=== PATIENT | male | born 1950 | race Caucasian/White ===

== ENCOUNTER 2017-10-28 04:27 | Observation (INO) | payer OTHER ==
--- NOTE | 2017-10-28 04:53 | EDM.PDOC ---
ED HPI GENERAL MEDICAL PROBLEM - General Chief Complaint: Cardiovascular Problem Stated Complaint: Chest Pain Time Seen by Provider: 10/28/17 04:40 Source of Information: Reports: Patient, EMS History Limitations: Reports: No Limitations - History of Present Illness INITIAL COMMENTS - FREE TEXT/NARRATIVE: Patient brought in with complaints of chest pain that started early Monday morning. They continued throughout the day but he called EMS when he became diaphoretic. Pain is to the lower left anterior chest with no radiation to the neck, back, or arm. Pain worsens with inspiration, as well as palpation. He does have an extensive heart history with at least 2 resuscitation attempts. He does have an AICD implanted to the left subclavian area. This has not fired He also does have a history of asthma, COPD, migraine headaches. He is here with big black sunglasses on currently. Onset: Gradual Location: Reports: Chest Quality: Reports: Burning Severity: Mild Improves with: Reports: Medication Worsens with: Reports: Breathing, Other (contact) Left Chest Pain Score (Numeric/FACES): 2 - Related Data Allergies Allergy/AdvReac Type Severity Reaction Status Date / Time tetracycline Allergy Hives Verified 10/28/17 05:29 Home Meds: Home Meds Omeprazole Magnesium [Prilosec Otc] 20 mg PO DAILY 11/05/15 [History] predniSONE [Prednisone] 5 mg PO DAILY 11/05/15 [History] Past Medical History Cardiovascular History: Reports: Automatic Implantable Cardioverter Defibrillators, CAD, Heart Failure, [place], Pacemaker Respiratory History: Reports: COPD Gastrointestinal History: Reports: Hiatal Hernia Musculoskeletal History: Reports: RA Endocrine/Metabolic History: Reports: Diabetes, Type II - Past Surgical History Cardiovascular Surgical History: Reports: AICD, Carotid Stents, Pacer ED ROS GENERAL - Review of Systems Review Of Systems: See Below Constitutional: Reports: Diaphoresis HEENT: Reports: No Symptoms Respiratory: Reports: Shortness of Breath, Wheezing Cardiovascular: Reports: Chest Pain Endocrine: Reports: No Symptoms GI/Abdominal: Reports: No Symptoms : Reports: No Symptoms Musculoskeletal: Reports: No Symptoms Skin: Reports: No Symptoms Neurological: Reports: No Symptoms Psychiatric: Reports: No Symptoms Hematologic/Lymphatic: Reports: No Symptoms Immunologic: Reports: No Symptoms ED EXAM, GENERAL - Physical Exam Exam: See Below Exam Limited By: No Limitations General Appearance: Alert, WD/WN, Mild Distress Eye Exam: Bilateral Eye: EOMI, Normal Inspection, PERRL Ears: Normal TMs Head: Atraumatic, Normocephalic Neck: Normal Inspection, Supple, Non-Tender, Full Range of Motion Respiratory/Chest: No Respiratory Distress, Lungs Clear, Normal Breath Sounds, No Accessory Muscle Use, Chest Non-Tender Cardiovascular: Normal Peripheral Pulses, Regular Rate, Rhythm, No Edema, No Gallop, No JVD, No Murmur, No Rub Peripheral Pulses: 2+: Radial (L), Radial (R), Posterior Tibial (L), Posterior Tibial (R), Dorsalis Pedis (L), Dorsalis Pedis (R) GI/Abdominal: Normal Bowel Sounds, Soft, Non-Tender, No Organomegaly, No Distention, No Abnormal Bruit, No Mass Back Exam: Normal Inspection, Full Range of Motion, NT Extremities: Normal Inspection, Normal Range of Motion, Non-Tender, Normal Capillary Refill, No Pedal Edema Neurological: Alert, Oriented, CN II-XII Intact, Normal Cognition, Normal Gait, Normal Reflexes, No Motor/Sensory Deficits Psychiatric: Normal Affect, Normal Mood Skin Exam: Warm, Dry, Intact, Normal Color, No Rash Lymphatic: No Adenopathy Departure - Departure Time of Disposition: 06:08 Disposition: Refer to Observation Condition: Fair Clinical Impression: Chest pain, Angina pectoris, COPD exacerbation - Problem List & Annotations (1) Angina pectoris SNOMED Code(s): 927198607 Code(s): I20.9 - ANGINA PECTORIS, UNSPECIFIED Status: Acute Priority: Medium Current Visit: Yes Annotation/Comment:: Trend troponin, transfer out if elevation occurs ASA and nitro given in EMS Monitor for troponin elevation, BNP elevatation (2) COPD exacerbation SNOMED Code(s): 574795188606421 Code(s): J44.1 - CHRONIC OBSTRUCTIVE PULMONARY DISEASE W (ACUTE) EXACERBATION Status: Acute Priority: Medium Current Visit: Yes Annotation/Comment:: Neb treatments PRN Solumedrol q12 hours supplemental oxygen - Problem List Review Problem List Initiated/Reviewed/Updated: Yes - Assessment/Plan Plan: Admit observation Monitor patient for any troponin elevation, increased difficulty or work of breathing Neb treatments and iv solumedrol for copd exacerbation
[2017-10-28] MEDS ORDERED: GI Cocktail Oral Solution 30 ML PO ONE (05:01)
[2017-10-28 05:14] LABS: CHLORIDE,CL 103 mmol/L (98-107); SODIUM,NA 140 mmol/L (136-145)
[2017-10-28] MEDS ORDERED: Albuterol/Ipratropium 3.0-0.5 MG/3 ML Neb Soln NEB ONE (05:26)
[2017-10-28] MEDS ORDERED: Potassium Chloride 20 MEQ Tab.ER PO ONE (05:28)
[2017-10-28] MEDS: Enoxaparin 40 MG/0.4 ML Syringe SUBCUT SCH (11:59)
[2017-10-28] MEDS ORDERED: Ibuprofen 200 MG Tab PO PRN (12:59)
[2017-10-28] MEDS: Lisinopril 2.5 MG Tab PO SCH (14:13)
[2017-10-28] MEDS: predniSONE 5 MG Tab PO SCH (14:13)
[2017-10-28] MEDS: amLODIPine 5 MG Tab PO SCH (14:13)
[2017-10-28] MEDS: Cholecalciferol (Vitamin D3) 1,000 Unit Tab PO SCH (14:13)
[2017-10-28] MEDS: Metoprolol Succinate 50 MG Tab.ER PO SCH (14:14)
[2017-10-28] MEDS: glipiZIDE 5 MG Tab PO SCH (14:14)
[2017-10-28] MEDS: Aspirin 81 MG Tab.EC PO SCH (14:15)
[2017-10-28] MEDS: Fluticasone Propionate Nasal Spray 16 GM Bottle NAS SCH ×2 (14:17→19:37)
[2017-10-28] MEDS: CHLORTHALIDONE 25 MG PO SCH (16:22)
[2017-10-28] MEDS: Albuterol/Ipratropium 3.0-0.5 MG/3 ML Neb Soln NEB SCH (19:36)
[2017-10-28] MEDS ORDERED: atorvaSTATin 40 MG Tab PO SCH (20:00)
[2017-10-29 05:47] VITALS: BP 128/73
[2017-10-29] MEDS: glipiZIDE 5 MG Tab PO SCH (06:30)
[2017-10-29] MEDS ORDERED: Omeprazole 20 MG Cap.CR PO SCH (07:00)
[2017-10-29] MEDS: Albuterol/Ipratropium 3.0-0.5 MG/3 ML Neb Soln NEB SCH (07:09)
[2017-10-29] MEDS: Metoprolol Succinate 50 MG Tab.ER PO SCH (07:48)
[2017-10-29] MEDS: amLODIPine 5 MG Tab PO SCH (07:49)
[2017-10-29] MEDS: Lisinopril 2.5 MG Tab PO SCH (07:49)
[2017-10-29] MEDS: Aspirin 81 MG Tab.EC PO SCH (07:49)
[2017-10-29] MEDS: predniSONE 5 MG Tab PO SCH (07:49)
[2017-10-29] MEDS: Enoxaparin 40 MG/0.4 ML Syringe SUBCUT SCH (07:50)
[2017-10-29] MEDS: Cholecalciferol (Vitamin D3) 1,000 Unit Tab PO SCH (07:50)
[2017-10-29] MEDS: CHLORTHALIDONE 25 MG PO SCH (07:51)
[2017-10-29] MEDS: Fluticasone Propionate Nasal Spray 16 GM Bottle NAS SCH (07:51)
== END 2017-10-29 08:50 | disposition home or self-care (01) ==
LOC: VM.ED 04:27 → VM.MS 05:42 → UNDOADMOB 05:54 → VM.MS 05:54
PROVIDERS: ADMIT Nurse Practitioner Family; ATTEND Nurse Practitioner Family
DX: I20.9 Angina pectoris, unspecified (principal); I11.0 Hypertensive heart disease with heart failure; I50.9 Heart failure, unspecified; E11.9 Type 2 diabetes mellitus without complications; J44.9 Chronic obstructive pulmonary disease, unspecified; G43.909 Migraine, unspecified, not intractable, without status migrainosus; Z95.810 Presence of automatic (implantable) cardiac defibrillator; Z88.1 Allergy status to other antibiotic agents; Z79.82 Long term (current) use of aspirin; Z79.51 Long term (current) use of inhaled steroids; Z79.84 Long term (current) use of oral hypoglycemic drugs
CPT/HCPCS: 36415; 71045; 80053; 82550; 82962; 83735; 83880; 84100; 84443; 84484; 85025; 85027; 85379; 85610; 93005; 94640; 94760; 96372; 99285; A9270-GY; G0378; J1650

== ENCOUNTER 2018-05-21 06:49 | Emergency (ER) | payer OTHER ==
[2018-05-21] MEDS ORDERED: cefTRIAXone 1 GM Vial IVPUSH ONE (07:16)
[2018-05-21 07:52] LABS: CHLORIDE,CL 99 mmol/L (98-107); SODIUM,NA 136 mmol/L (136-145)
--- NOTE | 2018-05-21 07:59 | EDM.PDOC ---
ED HPI GENERAL MEDICAL PROBLEM - General Chief Complaint: Respiratory Problem Stated Complaint: dyspnea, AICD fired Time Seen by Provider: 05/21/18 06:52 Source of Information: Reports: Patient, EMS History Limitations: Reports: No Limitations - History of Present Illness INITIAL COMMENTS - FREE TEXT/NARRATIVE: Patient was taking his medications this AM when his AICD fired. He also states he is SOB. States he has had a cough and feeling ill for the last 2 weeks. History of COPD, diabetes II, stent placement x 3 stents, last echo in 2013 showed EF of 40%. Still smokes 1 PPD. Denies chills, headache, abdominal pain , chest pain, neurological changes, no change in muscle strength or ROM. Onset: Sudden Duration: Resolved Prior to Arrival Associated Symptoms: Reports: Shortness of Breath Left Chest Pain Score (Numeric/FACES): 2 - Related Data Allergies Allergy/AdvReac Type Severity Reaction Status Date / Time tetracycline Allergy Hives Verified 05/21/18 06:59 Home Meds: Home Meds Omeprazole Magnesium [Prilosec Otc] 20 mg PO DAILY 11/05/15 [History] predniSONE [Prednisone] 10 mg PO DAILY 11/05/15 [History] Albuterol/Ipratropium [DuoNeb 3.0-0.5 MG/3 ML] 1 inh NEB TID 10/28/17 [History] Chlorthalidone 12.5 mg PO DAILY 10/28/17 [History] Glucose Tab 8 gram PO ASDIRECTED PRN 10/28/17 [History] Ibuprofen [Motrin Ib] 200 mg PO BID PRN 10/28/17 [History] Lisinopril [Zestril] 40 mg PO DAILY 10/28/17 [History] Metoprolol Succinate [Toprol XL 100mg] 100 mg PO DAILY 10/28/17 [History] glipiZIDE [Glipizide ER] 0.25 tab PO DAILY 10/28/17 [History] sulfaSALAzine 2 tab PO DAILY 05/21/18 [History] Past Medical History HEENT History: Reports: Cataract, Sinusitis, Other (See Below) Other HEENT History: left eye problems, photo sensitive Cardiovascular History: Reports: Automatic Implantable Cardioverter Defibrillators, CAD, Heart Failure, [place], Pacemaker Respiratory History: Reports: COPD Gastrointestinal History: Reports: Hiatal Hernia, Other (See Below) Other Gastrointestinal History: diverticulitis Genitourinary History: Reports: Renal Calculus, Other (See Below) Other Genitourinary History: renal failure s/p pacer/aicd placement Musculoskeletal History: Reports: RA Neurological History: Reports: Migraines Endocrine/Metabolic History: Reports: Diabetes, Type II - Infectious Disease History Infectious Disease History: Reports: Chicken Pox, Measles - Past Surgical History HEENT Surgical History: Reports: Cataract Surgery Cardiovascular Surgical History: Reports: AICD, Carotid Stents, Pacer GI Surgical History: Reports: Appendectomy Male Surgical History: Reports: Kidney Stone Extraction Neurological Surgical History: Reports: Other (See Below) Other Neurological Surgeries/Procedures: back surgery x 2 Social & Family History - Family History Cardiac: Reports: Heart Failure Neurological: Reports: Alzheimers Disease Oncologic: Reports: Bone - Caffeine Use Caffeine Use: Reports: Coffee Caffeine Use Comment: 1 pot coffee/day ED ROS GENERAL - Review of Systems Review Of Systems: See Below Constitutional: Reports: No Symptoms HEENT: Reports: Sinus Problem, Throat Pain Respiratory: Reports: Shortness of Breath Cardiovascular: Reports: Other (AICD fired x 1) Endocrine: Reports: No Symptoms GI/Abdominal: Reports: No Symptoms : Reports: No Symptoms Musculoskeletal: Reports: No Symptoms Skin: Reports: No Symptoms Neurological: Reports: No Symptoms Psychiatric: Reports: No Symptoms Hematologic/Lymphatic: Reports: No Symptoms Immunologic: Reports: No Symptoms ED EXAM, GENERAL - Physical Exam Exam: See Below Exam Limited By: No Limitations General Appearance: Alert, WD/WN, No Apparent Distress Eye Exam: Bilateral Eye: EOMI, PERRL Ears: Normal TMs Nose: Normal Inspection, Normal Mucosa, No Blood Throat/Mouth: Normal Inspection, Normal Lips, Normal Teeth, Normal Gums, Normal Oropharynx, Normal Voice, No Airway Compromise Head: Atraumatic, Normocephalic Neck: Normal Inspection, Supple, Non-Tender, Full Range of Motion Respiratory/Chest: Rales, Wheezing Cardiovascular: Normal Peripheral Pulses, Regular Rate, Rhythm, No Edema Peripheral Pulses: 2+: Posterior Tibial (L), Posterior Tibial (R), Dorsalis Pedis (L), Dorsalis Pedis (R) GI/Abdominal: Normal Bowel Sounds, Soft, Non-Tender, No Organomegaly, No Distention, No Abnormal Bruit, No Mass Extremities: Normal Inspection, Normal Range of Motion, Non-Tender, Normal Capillary Refill, No Pedal Edema Neurological: Alert, Oriented, CN II-XII Intact, Normal Cognition, Normal Gait, Normal Reflexes, No Motor/Sensory Deficits Psychiatric: Normal Affect, Normal Mood Skin Exam: Warm, Dry, Intact, Normal Color, No Rash Lymphatic: No Adenopathy Course - Vital Signs Last Recorded V/S: Last Vital Signs Temp 38.2 C H 05/21/18 08:12 Pulse 99 05/21/18 09:00 Resp 22 H 05/21/18 09:00 BP 132/71 05/21/18 09:00 Pulse Ox 96 05/21/18 09:00 - Orders/Labs/Meds Orders: Active Orders 24 hr Category Date Time Status EKG Documentation Completion [] STAT Care 05/21/18 06:59 Active Oxygen Therapy Adult [Oxygen Therapy, ED] [] Care 05/21/18 07:15 Active ASDIRECTED Chest 1V Frontal [CR] Stat Exams 05/21/18 07:01 Taken CULTURE BLOOD [BC] Stat Lab 05/21/18 07:08 Received CULTURE BLOOD [BC] Stat Lab 05/21/18 07:13 Results Blood Culture x2 Reflex Set [OM.PC] Stat Oth 05/21/18 07:08 Ordered Labs: Laboratory Tests 05/21/18 05/21/18 05/21/18 Range/Units 07:08 07:08 07:08 WBC 15.0 H (4.0-10.0) x10^3/uL RBC 6.06 H (4.5-6.0) x10^6/uL Hgb 16.8 (14.0-18.0) g/dL Hct 50.0 (40.0-52.0) % MCV 82.5 D (78.0-93.0) fL MCH 27.7 (26.0-32.0) pg MCHC 33.6 (32.0-36.0) g/dL RDW Coeff of Maximino 14.6 (10.0-15.0) % Plt Count 197 (130-400) x10^3/uL Add Manual Diff Yes Neutrophils % (Manual) 80 (50-80) % Band Neutrophils % 2 (0-6) % Lymphocytes % (Manual) 10 L (25-50) % Reactive Lymphs % 1 H (0) % Monocytes % (Manual) 7 (2-11) % Hypersegmented Neuts Rare H Smudge Cells Few H Platelet Estimate Adequate Sodium 136 (136-145) mmol/L Potassium 4.0 (3.5-5.1) mmol/L Chloride 99 (98-107) mmol/L Carbon Dioxide 28 (21-32) mmol/L Anion Gap 13.0 (10-20) mmol/L BUN 21 H (7-18) mg/dL Creatinine 1.1 (0.70-1.30) mg/dL Est Cr Clr Drug Dosing 57.46 mL/min Estimated GFR (MDRD) > 60 Glucose 116 H (74-106) mg/dL Lactic Acid 1.5 (0.4-2.0) mmol/L Calcium 9.7 (8.5-10.1) mg/dL Corrected Calcium 10.42 H (8.5-10.1) mg/dL Magnesium 1.6 L (1.8-2.4) mg/dL Total Bilirubin 0.5 (0.2-1.0) mg/dL AST 19 (15-37) U/L ALT 28 (16-63) U/L Alkaline Phosphatase 100 (46-116) U/L Creatine Kinase 90 (39-308) U/L Troponin I 0.040 (<=0.056) ng/mL NT-Pro-B Natriuret Pep 1006 H (<=125) pg/mL Total Protein 6.9 (6.4-8.2) g/dL Albumin 3.1 L (3.4-5.0) g/dL Globulin 3.8 Albumin/Globulin Ratio 0.82 Meds: Medications Discontinued Medications Generic Name Dose Route Start Last Admin Trade Name Freq PRN Reason Stop Dose Admin Ceftriaxone Sodium 1 gm 05/21/18 07:16 05/21/18 07:25 Rocephin IVPUSH 05/21/18 07:17 1 gm STAT ONE Administration Departure - Departure Time of Disposition: 09:05 Disposition: DC/Tfer to Acute Hospital 02 Condition: Fair Clinical Impression: AICD discharge - Discharge Information *PRESCRIPTION DRUG MONITORING PROGRAM REVIEWED*: Not Applicable *COPY OF PRESCRIPTION DRUG MONITORING REPORT IN PATIENT BASSEM: Not Applicable Referrals: PCP,Not In Area [Primary Care Provider] - Forms: ED Department Discharge, Interfacility Transfer EMTALA ED Communication - ED Communication Date/Time Date: 05/21/18 Time Called: 08:00 - Discussed Case With (1) Discussed Case With (1): Other (Discussed case with gullet slitter at [facility] in [place], Dr. Templeton. She felt additional cardiology work up was not needed with exception of possibly a stress test. Will call [facility]) - Discussed Case With (2) Discussed Case With (2): Admitting Provider (Dr. Randle called and given report. He has accepted care of patient. [facility] in [place]) - Problem List & Annotations (1) AICD discharge SNOMED Code(s): 221435924, 152498783 Code(s): Z45.02 - ENCNTR FOR ADJUST AND MGMT OF AUTOMATIC IMPLNTBL CARD DEFIB Status: Acute Priority: Medium - Problem List Review Problem List Initiated/Reviewed/Updated: Yes - My Orders Last 24 Hours: My Active Orders 05/21/18 06:59 EKG Documentation Completion [RC] STAT 05/21/18 07:01 Chest 1V Frontal [CR] Stat 05/21/18 07:08 CULTURE BLOOD [BC] Stat Blood Culture x2 Reflex Set [OM.PC] Stat 05/21/18 07:13 CULTURE BLOOD [BC] Stat 05/21/18 07:15 Oxygen Therapy Adult [Oxygen Therapy, ED] [RC] ASDIRECTED - Assessment/Plan Last 24 Hours: My Active Orders 05/21/18 06:59 EKG Documentation Completion [RC] STAT 05/21/18 07:01 Chest 1V Frontal [CR] Stat 05/21/18 07:08 CULTURE BLOOD [BC] Stat Blood Culture x2 Reflex Set [OM.PC] Stat 05/21/18 07:13 CULTURE BLOOD [BC] Stat 05/21/18 07:15 Oxygen Therapy Adult [Oxygen Therapy, ED] [RC] ASDIRECTED
[2018-05-21 09:01] VITALS: BP 132/71
== END 2018-05-21 09:05 | disposition short-term general hospital (02) ==
LOC: VM.ED 06:49
DX: Z45.02 Encounter for adjustment and management of automatic implantable cardiac defibrillator (principal); J44.9 Chronic obstructive pulmonary disease, unspecified; E11.9 Type 2 diabetes mellitus without complications; I50.9 Heart failure, unspecified; I25.2 Old myocardial infarction; F17.210 Nicotine dependence, cigarettes, uncomplicated; Z88.1 Allergy status to other antibiotic agents; Z79.899 Other long term (current) drug therapy; Z79.84 Long term (current) use of oral hypoglycemic drugs; Z95.810 Presence of automatic (implantable) cardiac defibrillator; Z95.5 Presence of coronary angioplasty implant and graft
CPT/HCPCS: 36415; 71045; 80053; 82550; 83605; 83735; 83880; 84484; 85025; 87040; 93005; 96374; 99284-GF; 99285; J0696

== ENCOUNTER 2019-10-03 16:04 | Emergency (ER) | payer OTHER ==
[2019-10-03 16:14] VITALS: BP 148/76; PULSE 76
[2019-10-03] MEDS ORDERED: Sodium Chloride 0.9% 10 ML Syringe FLUSH PRN (16:18)
[2019-10-03] MEDS ORDERED: GI Cocktail Oral Solution 30 ML PO ONE (16:19)
[2019-10-03] MEDS ORDERED: Albuterol/Ipratropium 3.0-0.5 MG/3 ML Neb Soln NEB ONE (16:19)
--- NOTE | 2019-10-03 16:44 | EDM.PDOC ---
ED HPI GENERAL MEDICAL PROBLEM - General Chief Complaint: Respiratory Problem Stated Complaint: SOB Time Seen by Provider: 10/03/19 16:20 Source of Information: Reports: Patient History Limitations: Reports: No Limitations - History of Present Illness INITIAL COMMENTS - FREE TEXT/NARRATIVE: Patient comes emergency department today from the [facility] for further evaluation and care of shortness of breath. This patient about 6 weeks ago ended up getting a cardiac stent at [facility] in [place]. Since that time he has had continued heartburn and burning in the middle of his chest which she has had for 6 years has not gotten much worse. But he has noticed that he has had increasing shortness of breath and difficulty breathing for the past 6 weeks. It is getting to the point where it is interfering with his physical activity. He is coughing more. He denies any fever or chills. No weakness dizziness lightheadedness. No palpitations. No heaviness or other pains in his chest other than his chronic burning sensation from his heartburn for which he takes his Prilosec for. He has not had any diaphoresis nausea or vomiting. No abdominal pain. No pain into his back. He has been using his inhalers at home but he continues to be short of breath. He feels audibly. He does not weigh himself on a regular basis. He has been taking his Plavix as prescribed. He has never had a scope on his stomach to see if he has an ulcer but he has been on Protonix for years. Epigastric Pain Score (Numeric/FACES): 1 - Related Data Allergies Allergy/AdvReac Type Severity Reaction Status Date / Time nitrofurantoin Allergy Other Verified 10/03/19 16:39 tetracycline Allergy Hives Verified 10/03/19 16:16 Home Meds: Home Meds Albuterol/Ipratropium [DuoNeb 3.0-0.5 MG/3 ML] 1 inh NEB Q6H PRN 10/28/17 [ History] Ibuprofen [Motrin Ib] 200 mg PO BID PRN 10/28/17 [History] Metoprolol Succinate [Toprol XL 100mg] 25 mg PO DAILY 10/28/17 [History] glipiZIDE [Glipizide ER] 5 mg PO DAILY 10/28/17 [History] lisinopriL [Zestril] 40 mg PO DAILY 10/28/17 [History] Aspirin 81 mg PO DAILY 09/04/19 [History] Chlorthalidone 25 mg PO DAILY 09/04/19 [History] Cholecalciferol (Vitamin D3) [Vitamin D3] 1,000 mg PO DAILY 09/04/19 [History] Clopidogrel Bisulfate [Plavix] 75 mg PO DAILY 09/04/19 [History] Tiotropium Br/Olodaterol HCl [Stiolto Respimat Inhal [place]] 2 inh PO DAILY 09/03 [History] amLODIPine Besylate [Norvasc] 5 mg PO DAILY 09/04/19 [History] Albuterol Sulfate 2.5 mg IH Q4HR PRN #30 vial.neb 10/03/19 [Rx] Amoxicillin 1,000 mg PO BID #28 capsule 10/03/19 [Rx] Azithromycin 250 mg PO DAILY #5 tablet 10/03/19 [Rx] Tamsulosin [Tamsulosin 24 Hr] 0.4 mg PO DAILY 10/03/19 [History] atorvaSTATin Calcium [Lipitor] 40 mg PO DAILY 10/03/19 [History] predniSONE 20 mg PO DAILY #5 tab 10/03/19 [Rx] predniSONE [Prednisone] 10 mg PO DAILY 10/03/19 [History] sulfaSALAzine [Azulfidine] 500 mg PO BID 10/03/19 [History] Past Medical History HEENT History: Reports: Cataract, Sinusitis, Other (See Below) Other HEENT History: left eye problems, photo sensitive Cardiovascular History: Reports: Automatic Implantable Cardioverter Defibrillators, CAD, Heart Failure, DE, Pacemaker Respiratory History: Reports: COPD Gastrointestinal History: Reports: Hiatal Hernia, Other (See Below) Other Gastrointestinal History: diverticulitis Genitourinary History: Reports: Renal Calculus, Other (See Below) Other Genitourinary History: renal failure s/p pacer/aicd placement Musculoskeletal History: Reports: RA Neurological History: Reports: Migraines Psychiatric History: Reports: Addiction Endocrine/Metabolic History: Reports: Diabetes, Type II - Infectious Disease History Infectious Disease History: Reports: Chicken Pox, Measles - Past Surgical History HEENT Surgical History: Reports: Cataract Surgery Cardiovascular Surgical History: Reports: AICD, Carotid Stents, Pacer GI Surgical History: Reports: Appendectomy Male Surgical History: Reports: Kidney Stone Extraction Neurological Surgical History: Reports: Other (See Below) Other Neurological Surgeries/Procedures: back surgery x 2 Social & Family History - Family History Cardiac: Reports: Heart Failure Neurological: Reports: Alzheimers Disease Oncologic: Reports: Bone - Tobacco Use Smoking Status *Q: Current Every Day Smoker Years of Tobacco use: 50 Packs/Tins Daily: 1 - Caffeine Use Caffeine Use: Reports: Coffee Caffeine Use Comment: 1 pot coffee/day ED ROS GENERAL - Review of Systems Review Of Systems: Comprehensive ROS is negative, except as noted in HPI. ED EXAM, GENERAL - Physical Exam Exam: See Below Free Text/Narrative:: To speak in about 6-8 word sentences and does not appear in overt respiratory distress. Exam Limited By: No Limitations General Appearance: Alert, WD/WN, No Apparent Distress Nose: Normal Inspection Throat/Mouth: Normal Inspection Head: Atraumatic, Normocephalic Neck: Normal Inspection, Supple Respiratory/Chest: No Respiratory Distress, No Accessory Muscle Use, Decreased Breath Sounds (thoughout), Wheezing (thoughout). No: Chest Non-Tender, Crackles , Rales, Rhonchi Cardiovascular: Normal Peripheral Pulses, Regular Rate, Rhythm Peripheral Pulses: 2+: Radial (L), Radial (R), Posterior Tibial (L), Posterior Tibial (R), Dorsalis Pedis (L), Dorsalis Pedis (R) GI/Abdominal: Normal Bowel Sounds, Soft, Non-Tender (Male) Exam: Deferred Rectal (Males) Exam: Deferred Back Exam: Normal Inspection Extremities: Normal Inspection, Normal Range of Motion, No Pedal Edema, Normal Capillary Refill Neurological: Alert, Oriented, Normal Cognition, No Motor/Sensory Deficits Psychiatric: Normal Affect, Normal Mood Skin Exam: Warm, Dry, Intact, Normal Color EKG INTERPRETATION EKG Date: 10/03/19 Time: 16:46 Rhythm: Other (A-V paced) Rate (Beats/Min): 70 QRS: Wide ST-T: Normal QT: Normal Comparison: No Change Course - Vital Signs Last Recorded V/S: Last Vital Signs Temp 36.9 C 10/03/19 16:04 Pulse 76 10/03/19 16:04 Resp 20 10/03/19 16:04 BP 148/76 H 10/03/19 16:04 Pulse Ox 93 L 10/03/19 16:04 - Orders/Labs/Meds Orders: Active Orders 24 hr Category Date Time Status EKG Documentation Completion [RC] STAT Care 10/03/19 16:19 Active RT Aerosol Therapy [RC] ASDIRECTED Care 10/03/19 16:19 Active RT Aerosol Therapy [RC] ASDIRECTED Care 10/03/19 17:53 Active Peripheral IV Insertion Adult [OM.PC] Stat Oth 10/03/19 16:18 Ordered Labs: Laboratory Tests 10/03/19 10/03/19 10/03/19 Range/Units 16:27 16:27 17:35 WBC 14.2 H (4.0-10.0) x10^3/uL RBC 6.26 H (4.5-6.0) x10^6/uL Hgb 17.4 (14.0-18.0) g/dL Hct 51.6 (40.0-52.0) % MCV 82.4 (78.0-93.0) fL MCH 27.8 (26.0-32.0) pg MCHC 33.7 (32.0-36.0) g/dL RDW Coeff of Maximino 14.7 (10.0-15.0) % Plt Count 236 (130-400) x10^3/uL Neut % (Auto) 81.4 H (50.0-80.0) % Lymph % (Auto) 13.1 L (25.0-50.0) % [place] % (Auto) 4.6 (2.0-11.0) % Eos % (Auto) 0.7 (0.0-4.0) % Baso % (Auto) 0.2 (0.2-1.2) % Sodium 141 (136-145) mmol/L Potassium 4.2 (3.5-5.1) mmol/L Chloride 104 (98-107) mmol/L Carbon Dioxide 25 (21-32) mmol/L Anion Gap 16.2 (10-20) mmol/L BUN 20 H (7-18) mg/dL Creatinine 0.9 (0.70-1.30) mg/dL Est Cr Clr Drug Dosing TNP Estimated GFR (MDRD) > 60 Glucose 113 H (74-106) mg/dL Calcium 10.4 H (8.5-10.1) mg/dL Corrected Calcium 10.72 H (8.5-10.1) mg/dL Total Bilirubin 0.3 (0.2-1.0) mg/dL AST 14 L (15-37) U/L ALT 23 (16-63) U/L Alkaline Phosphatase 109 (46-116) U/L Troponin I < 0.017 (<=0.056) ng/mL C-Reactive Protein 2.3 H (<=0.9) mg/dL NT-Pro-B Natriuret Pep 457 H (<=125) pg/mL Total Protein 6.9 (6.4-8.2) g/dL Albumin 3.6 (3.4-5.0) g/dL Globulin 3.3 Albumin/Globulin Ratio 1.09 SARS-CoV-2 RNA (RT-PCR) Negative (NEGATIVE) Meds: Medications Discontinued Medications Generic Name Dose Route Start Last Admin Trade Name Freq PRN Reason Stop Dose Admin Al Hydroxide/Mg Hydroxide 30 ml 10/03/19 16:19 10/03/19 16:32 Gi Cocktail PO 10/03/19 16:20 30 ml ONETIME ONE Administration Albuterol 1 packet 10/03/19 18:35 10/03/19 18:47 Take Home: Albuterol 0.083%, 4 Neb Pack [facility] 10/03/19 18:36 1 packet ONETIME ONE Administration Albuterol/Ipratropium 3 ml 10/03/19 16:19 10/03/19 16:32 Duoneb 3.0-0.5 Mg/3 Ml NEB 10/03/19 16:20 3 ml ONETIME ONE Administration Amoxicillin 1,000 mg 10/03/19 17:47 10/03/19 18:29 Amoxil PO 10/03/19 17:48 1,000 mg ONETIME ONE Administration Amoxicillin 500 mg 10/03/19 17:47 10/03/19 18:31 Amoxil 250 Mg/5 Ml Susp PO 10/03/19 17:48 Not Given ONETIME ONE Budesonide 1 mg 10/03/19 17:52 10/03/19 18:29 Pulmicort NEB 10/03/19 17:53 1 mg ONETIME ONE Administration Prednisone 40 mg 10/03/19 17:54 10/03/19 18:29 Prednisone PO 10/03/19 17:55 40 mg NOW STA Administration Sodium Chloride 10 ml 10/03/19 16:18 Saline Flush FLUSH ASDIRECTED PRN Keep Vein Open - Radiology Interpretation Free Text/Narrative:: CXR per radiology shows mild infiltrates in the lingula. - Re-Assessments/Exams Free Text/Narrative Re-Assessment/Exam: 10/03/19 The patient was given a GI Cocktail for his gerd and resolved the midsternal burning. EKG unchanged from previous. Duo-neb with resolution of the wheezing and the subjective SOB. CXR on my extemporaneous review with concerns for pneumonia. Radiology read to follow. Amox 1 gram po and Azith 500mg PO. Allergic to Tetracycline. Labs with mild elevation of WBC and CRP. Trop normal/negative. Rapid Covid Negative. Pro BNP minimally elevated. Budesonide neb 0.5mg with complete and continued resolution of the symptoms. We will discharge patient home on amoxicillin 1 g p.o. twice daily and azithromycin 250 mg daily for the next 5 days amoxicillin for a total of 10 days. Also just a small dose of prednisone because he is worried about the spike in his blood sugars with the prednisone and he really does not have a severe exacerbation by any means 20 mg a day for the next 5 days. We will send him home with some albuterol as well as he does not feel that the stuff that he has at home is working well. Follow-up in a week for recheck with primary care. He is comfortable with this plan his questions are answered. Departure - Departure Time of Disposition: 18:27 Disposition: Home, Self-Care 01 Clinical Impression: COPD with exacerbation, COVID-19 ruled out Pneumonia Qualifiers: Pneumonia type: due to unspecified organism Laterality: unspecified laterality Lung location: unspecified part of lung Qualified Code(s): J18.9 - Pneumonia, unspecified organism - Discharge Information Prescriptions: Albuterol Sulfate 2.5 mg IH Q4HR PRN #30 vial.neb PRN Reason: Shortness Of Breath Amoxicillin 1,000 mg PO BID #28 capsule Azithromycin 250 mg PO DAILY #5 tablet predniSONE 20 mg PO DAILY #5 tab Referrals: Jose Wesley NP [Primary Care Provider] - Forms: ED Department Discharge Additional Instructions: Amoxicillin, 1 gram by mouth twice daily for the next 10 days. RX to [facility]. Zithromax, 1 tablet daily for the next 5 days. RX to [facility]. Prednisone 20mg a day for the next 5 days. Rx to [facility]. Watch your blood sugars. Push fluids over the next few days. Albuterol, 2.5mg nebulizer every 4 hrs as needed for Shortness of Breath or cough. Rx to [facility]. Return to the ED if new or worsening symptoms. Follow up with Jose Wesley in 7 days for recheck. Sooner if worse or not improving. Sepsis Event Note - Evaluation Sepsis Screening Result: No Definite Risk - Focused Exam Vital Signs: Vital Signs Temp Pulse Resp BP Pulse Ox 10/03/19 16:04 36.9 C 76 20 148/76 H 93 L Date Exam was Performed: 10/03/19 Time Exam was Performed: 22:04 - My Orders Last 24 Hours: My Active Orders 10/03/19 16:18 Peripheral IV Insertion Adult [OM.PC] Stat 10/03/19 16:19 EKG Documentation Completion [RC] STAT RT Aerosol Therapy [RC] ASDIRECTED 10/03/19 17:53 RT Aerosol Therapy [RC] ASDIRECTED - Assessment/Plan Last 24 Hours: My Active Orders 10/03/19 16:18 Peripheral IV Insertion Adult [OM.PC] Stat 10/03/19 16:19 EKG Documentation Completion [RC] STAT RT Aerosol Therapy [RC] ASDIRECTED 10/03/19 17:53 RT Aerosol Therapy [RC] ASDIRECTED Assessment:: COPD exacerbation with mild exacerbation. Pneumonia. Plan: Amoxicillin, 1 gram by mouth twice daily for the next 10 days. RX to [facility]. Zithromax, 1 tablet daily for the next 5 days. RX to [facility]. Prednisone 20mg a day for the next 5 days. Rx to [facility]. Watch your blood sugars. Push fluids over the next few days. Albuterol, 2.5mg nebulizer every 4 hrs as needed for Shortness of Breath or cough. Rx to [facility]. Return to the ED if new or worsening symptoms. Follow up with Jose Wesley in 7 days for recheck. Sooner if worse or not improving.
[2019-10-03 17:00] LABS: ANION GAP 16.2 mmol/L (10-20); CHLORIDE,CL 104 mmol/L (98-107); SODIUM,NA 141 mmol/L (136-145)
--- NOTE | 2019-10-03 17:23 | CR ---
[id number] RAD/RAD Chest PA And Lateral EXAM: FRONTAL AND LATERAL CHEST INDICATION: Chest pain and shortness of breath. COMPARISON: May 21, 2018. DISCUSSION: Cardiomegaly with mild central vascular congestion, unchanged. Chronic obstructive pulmonary disease. Mild infiltrates within the lingula. Left subclavian approach pacemaker/ICD leads RA, RV and coronary sinus. IMPRESSION: 1. Element of mild infiltrates in the lingula. Unless clinically indicated sooner, a 6 week follow-up exam is suggested to ensure resolution. 2. Stable cardiomegaly with borderline central vascular congestion. Jagjit Mendes MD 10/03/19 [id number] Thank you for allowing us to participate in the care of your patient.
[2019-10-03] MEDS ORDERED: Amoxicillin 250 MG/5 ML Susp 150 ML Bottle PO ONE (17:47)
[2019-10-03] MEDS ORDERED: Amoxicillin 500 MG Cap PO ONE (17:47)
[2019-10-03] MEDS ORDERED: Budesonide 0.5 MG/2 ML Neb Susp NEB ONE (17:52)
[2019-10-03] MEDS ORDERED: predniSONE 20 MG Tab PO STA (17:54)
[2019-10-03] MEDS ORDERED: Take Home: Albuterol 0.083% 2.5 MG/3 ML Neb Soln, 4 Neb Pack NEB ONE (18:35)
== END 2019-10-03 18:51 | disposition home or self-care (01) ==
LOC: VM.ED 16:04
DX: J44.1 Chronic obstructive pulmonary disease with (acute) exacerbation (principal); J18.9 Pneumonia, unspecified organism; I50.9 Heart failure, unspecified; M06.9 Rheumatoid arthritis, unspecified; F17.210 Nicotine dependence, cigarettes, uncomplicated; I25.10 Atherosclerotic heart disease of native coronary artery without angina pectoris; I25.2 Old myocardial infarction; Z88.8 Allergy status to other drugs, medicaments and biological substances; Z88.1 Allergy status to other antibiotic agents; Z79.82 Long term (current) use of aspirin; Z79.02 Long term (current) use of antithrombotics/antiplatelets; Z79.84 Long term (current) use of oral hypoglycemic drugs; Z79.899 Other long term (current) drug therapy; Z95.5 Presence of coronary angioplasty implant and graft
CPT/HCPCS: 71046; 80053; 83880; 84484; 85025; 86140; 93005; 93010; 94640; 99284-GF; 99285-25; A9270-GY; J7512; J7620-GY; U0002

== ENCOUNTER 2020-01-30 14:27 | Emergency (ER) | payer OTHER ==
[2020-01-30] MEDS ORDERED: Sodium Chloride 0.9% 10 ML Syringe FLUSH PRN (14:44)
[2020-01-30] MEDS ORDERED: fentaNYL 100 MCG/2 ML SDV IVPUSH ONE (14:46)
[2020-01-30] MEDS ORDERED: Ondansetron 4 MG/2 ML SDV IVPUSH ONE (14:52)
[2020-01-30] MEDS ORDERED: Ondansetron 4 MG/2 ML SDV ONE (15:00)
[2020-01-30 15:10] LABS: CHLORIDE,CL 100 mmol/L (98-107); SODIUM,NA 138 mmol/L (136-145)
[2020-01-30 15:11] LABS: ANION GAP 16.5 mmol/L (10-20)
[2020-01-30] MEDS ORDERED: Heparin Sodium 5,000 Units/ML Vial IVPUSH ONE (15:15)
[2020-01-30] MEDS ORDERED: Heparin Sodium/0.45% NaCl 25,000 UNITS/500 ML BAG IV SCH (15:15)
--- NOTE | 2020-01-30 15:15 | EDM.PDOC ---
ED HPI GENERAL MEDICAL PROBLEM - General Time Seen by Provider: 01/30/20 14:27 Source of Information: Reports: Patient, EMS History Limitations: Reports: No Limitations - History of Present Illness INITIAL COMMENTS - FREE TEXT/NARRATIVE: Pt. presents to ER following discharge of his AICD. Pt. has a longstanding history of CAD, history of previous cardiac arrest, and has an AICD/pacemaker. The AICD discharged once prior to arrival of EMS. Pt. was placed on the collections director and was witnessed going into Vtach and SVT that resulted in AICD discharge approx. 10-12 times. At one point, EMS relates that he was in Vfib. He was defibrillated once by EMS, and they state that they did approx. 5 chest compressions. Pt. was given 150mg Amiodarone via EMS. Once this was given, pt. converted to paced rhythm with occasional PVCs/PACs. Pt. was given one nitro and aspirin by EMS as well. Pt. was alert and oriented on arrival to ER. BP 154/74. Heart rate approx. 90. Pt. reported chest pain and shortness of breath over the past several days. he has had some congestion. Denies any fever or chills. No nausea or vomiting. Pt. states that he has not taken any of his medications today. Onset: Today Onset Date: 01/30/20 Location: Reports: Chest, Generalized Associated Symptoms: Reports: Chest Pain Treatments HEALTH CARE MANAGER: Reports: EKG, Oxygen, See EMS Report - Related Data Allergies Allergy/AdvReac Type Severity Reaction Status Date / Time nitrofurantoin Allergy Other Verified 10/03/19 16:39 tetracycline Allergy Hives Verified 10/03/19 16:16 Home Meds: Home Meds Albuterol/Ipratropium [DuoNeb 3.0-0.5 MG/3 ML] 1 inh NEB Q6H PRN 10/28/17 [History] Ibuprofen [Motrin Ib] 200 mg PO BID PRN 10/28/17 [History] Metoprolol Succinate [Toprol XL 100mg] 25 mg PO DAILY 10/28/17 [History] glipiZIDE [Glipizide ER] 5 mg PO DAILY 10/28/17 [History] lisinopriL [Zestril] 40 mg PO DAILY 10/28/17 [History] Aspirin 81 mg PO DAILY 09/04/19 [History] Chlorthalidone 25 mg PO DAILY 09/04/19 [History] Cholecalciferol (Vitamin D3) [Vitamin D3] 1,000 mg PO DAILY 09/04/19 [History] Clopidogrel Bisulfate [Plavix] 75 mg PO DAILY 09/04/19 [History] Tiotropium Br/Olodaterol HCl [Stiolto Respimat Inhal [place]] 2 inh PO DAILY 09/04/19 [History] amLODIPine Besylate [Norvasc] 5 mg PO DAILY 09/04/19 [History] Albuterol Sulfate 2.5 mg IH Q4HR PRN #30 vial.neb 10/03/19 [Rx] Amoxicillin 1,000 mg PO BID #28 capsule 10/03/19 [Rx] Azithromycin 250 mg PO DAILY #5 tablet 10/03/19 [Rx] Tamsulosin [Tamsulosin 24 Hr] 0.4 mg PO DAILY 10/03/19 [History] atorvaSTATin Calcium [Lipitor] 40 mg PO DAILY 10/03/19 [History] predniSONE 20 mg PO DAILY #5 tab 10/03/19 [Rx] predniSONE [Prednisone] 10 mg PO DAILY 10/03/19 [History] sulfaSALAzine [Azulfidine] 500 mg PO BID 10/03/19 [History] Past Medical History HEENT History: Reports: Cataract, Sinusitis, Other (See Below) Other HEENT History: left eye problems, photo sensitive Cardiovascular History: Reports: Automatic Implantable Cardioverter Defibrillators, CAD, Heart Failure, [place], Pacemaker Respiratory History: Reports: COPD Gastrointestinal History: Reports: Hiatal Hernia, Other (See Below) Other Gastrointestinal History: diverticulitis Genitourinary History: Reports: Renal Calculus, Other (See Below) Other Genitourinary History: renal failure s/p pacer/aicd placement Musculoskeletal History: Reports: RA Neurological History: Reports: Migraines Psychiatric History: Reports: Addiction Endocrine/Metabolic History: Reports: Diabetes, Type II - Infectious Disease History Infectious Disease History: Reports: Chicken Pox, Measles - Past Surgical History HEENT Surgical History: Reports: Cataract Surgery Cardiovascular Surgical History: Reports: AICD, Carotid Stents, Pacer GI Surgical History: Reports: Appendectomy Male Surgical History: Reports: Kidney Stone Extraction Neurological Surgical History: Reports: Other (See Below) Other Neurological Surgeries/Procedures: back surgery x 2 Social & Family History - Family History Cardiac: Reports: Heart Failure Neurological: Reports: Alzheimers Disease Oncologic: Reports: Bone - Caffeine Use Caffeine Use: Reports: Coffee Caffeine Use Comment: 1 pot coffee/day ED ROS GENERAL - Review of Systems Review Of Systems: See Below Constitutional: Reports: No Symptoms HEENT: Reports: No Symptoms Respiratory: Reports: Shortness of Breath Cardiovascular: Reports: Chest Pain Endocrine: Reports: No Symptoms GI/Abdominal: Reports: No Symptoms : Reports: No Symptoms Musculoskeletal: Reports: No Symptoms Skin: Reports: No Symptoms Neurological: Reports: No Symptoms Psychiatric: Reports: No Symptoms Hematologic/Lymphatic: Reports: No Symptoms Immunologic: Reports: No Symptoms ED EXAM, GENERAL - Physical Exam Exam: See Below Exam Limited By: No Limitations General Appearance: Alert, WD/WN, No Apparent Distress Throat/Mouth: Normal Inspection, Normal Lips, No Airway Compromise Head: Atraumatic, Normocephalic Neck: Normal Inspection, Supple Respiratory/Chest: No Accessory Muscle Use, Decreased Breath Sounds Cardiovascular: Normal Peripheral Pulses, No Edema, Irregularly Irregular Peripheral Pulses: 4+: Radial (R) GI/Abdominal: Soft, Non-Tender, No Mass (Male) Exam: Deferred Rectal (Males) Exam: Deferred Extremities: Normal Inspection, Normal Range of Motion, Non-Tender, No Pedal Edema, Normal Capillary Refill Neurological: Alert, Oriented, CN II-XII Intact, Normal Cognition, No Motor/Sensory Deficits Psychiatric: Normal Affect, Normal Mood Skin Exam: Warm, Dry, Intact, Normal Color, No Rash Lymphatic: No Adenopathy Course - Orders/Labs/Meds Orders: Active Orders 24 hr Category Date Time Status EKG Documentation Completion [RC] STAT Care 01/30/20 14:45 Ordered Amiodarone 360 MG in D5W @ 33.333 MLS/HR(200ml) Med 01/30/20 15:00 Ordered Amiodarone In Dextrose,Iso-Osm [Nexterone in Dextrose 360 MG/200 ML] 360 mg in 200 ml IV ASDIRECTED Heparin Sodium/0.45% NaCl [Heparin 25,000 Units in 1/2 Med 01/30/20 15:15 Ordered NS 500 ML] 25,000 units in 500 ml IV TITRATE Sodium Chloride 0.9% [Saline Flush] Med 01/30/20 14:44 Ordered 10 ml FLUSH ASDIRECTED PRN Peripheral IV Insertion Adult [OM.PC] Routine Oth 01/30/20 14:45 Ordered Medication Orders Amiodarone HCl/Dextrose (Nexterone In Dextrose 360 Mg/200 Ml) 360 mg in 200 mls @ 33.333 mls/hr IV ASDIRECTED JAVAD; Protocol Heparin Sodium/Sodium Chloride (Heparin 25,000 Units In 1/2 Ns 500 Ml) 25,000 units in 500 mls @ 20 mls/hr IV TITRATE JAVAD; Protocol Sodium Chloride (Saline Flush) 10 ml FLUSH ASDIRECTED PRN PRN Reason: Keep Vein Open Labs: Laboratory Tests 01/30/20 01/30/20 01/30/20 Range/Units 14:31 14:31 14:31 WBC 17.2 H (4.0-10.0) x10^3/uL RBC 6.36 H (4.5-6.0) x10^6/uL Hgb 16.9 (14.0-18.0) g/dL Hct 50.9 (40.0-52.0) % MCV 80.0 (78.0-93.0) fL MCH 26.6 (26.0-32.0) pg MCHC 33.2 (32.0-36.0) g/dL RDW Coeff of Maximino 15.6 H (10.0-15.0) % Plt Count 278 (130-400) x10^3/uL Add Manual Diff Yes Neutrophils % (Manual) 58 (50-80) % Band Neutrophils % 8 H (0-6) % Lymphocytes % (Manual) 19 L (25-50) % Monocytes % (Manual) 10 (2-11) % Metamyelocytes % 5 H (0) % Platelet Estimate Adequate Anisocytosis 1+ slight H PT 11.5 (9.5-12.3) SEC INR 1.1 L (2.0-3.5) Sodium 138 (136-145) mmol/L Potassium 3.5 (3.5-5.1) mmol/L Chloride 100 (98-107) mmol/L Carbon Dioxide 25 (21-32) mmol/L Anion Gap 16.5 (10-20) mmol/L BUN 19 H (7-18) mg/dL Creatinine 1.4 H (0.70-1.30) mg/dL Est Cr Clr Drug Dosing TNP Estimated GFR (MDRD) 51 Glucose 242 H (74-106) mg/dL Calcium 9.9 (8.5-10.1) mg/dL Corrected Calcium 10.46 H (8.5-10.1) mg/dL Magnesium 2.1 (1.8-2.4) mg/dL Total Bilirubin 0.4 (0.2-1.0) mg/dL AST 21 (15-37) U/L ALT 26 (16-63) U/L Alkaline Phosphatase 113 (46-116) U/L POC Troponin I (0.00-0.08) ng/mL C-Reactive Protein 1.8 H (<=0.9) mg/dL NT-Pro-B Natriuret Pep 765 H (<=125) pg/mL Total Protein 6.6 (6.4-8.2) g/dL Albumin 3.3 L (3.4-5.0) g/dL Globulin 3.3 Albumin/Globulin Ratio 1.00 TSH, Ultra Sensitive 3.727 (0.358-3.74) uIU/mL SARS CoV-2 RNA Rapid SINA (NEGATIVE) 01/30/20 01/30/20 Range/Units 14:34 14:36 WBC (4.0-10.0) x10^3/uL RBC (4.5-6.0) x10^6/uL Hgb (14.0-18.0) g/dL Hct (40.0-52.0) % MCV (78.0-93.0) fL MCH (26.0-32.0) pg MCHC (32.0-36.0) g/dL RDW Coeff of Maximino (10.0-15.0) % Plt Count (130-400) x10^3/uL Add Manual Diff Neutrophils % (Manual) (50-80) % Band Neutrophils % (0-6) % Lymphocytes % (Manual) (25-50) % Monocytes % (Manual) (2-11) % Metamyelocytes % (0) % Platelet Estimate Anisocytosis PT (9.5-12.3) SEC INR (2.0-3.5) Sodium (136-145) mmol/L Potassium (3.5-5.1) mmol/L Chloride (98-107) mmol/L Carbon Dioxide (21-32) mmol/L Anion Gap (10-20) mmol/L BUN (7-18) mg/dL Creatinine (0.70-1.30) mg/dL Est Cr Clr Drug Dosing Estimated GFR (MDRD) Glucose (74-106) mg/dL Calcium (8.5-10.1) mg/dL Corrected Calcium (8.5-10.1) mg/dL Magnesium (1.8-2.4) mg/dL Total Bilirubin (0.2-1.0) mg/dL AST (15-37) U/L ALT (16-63) U/L Alkaline Phosphatase (46-116) U/L POC Troponin I 0.03 (0.00-0.08) ng/mL C-Reactive Protein (<=0.9) mg/dL NT-Pro-B Natriuret Pep (<=125) pg/mL Total Protein (6.4-8.2) g/dL Albumin (3.4-5.0) g/dL Globulin Albumin/Globulin Ratio TSH, Ultra Sensitive (0.358-3.74) uIU/mL SARS CoV-2 RNA Rapid SINA Negative (NEGATIVE) Meds: Medications Generic Name Dose Route Start Last Admin Trade Name Freq PRN Reason Stop Dose Admin Amiodarone HCl/Dextrose 360 mg in 200 mls @ 33.333 mls/hr 01/30/20 15:00 Nexterone In Dextrose 360 Mg/200 Ml IV ASDIRECTED JAVAD Protocol Heparin Sodium/Sodium Chloride 25,000 units in 500 mls @ 20 mls/hr 01/30/20 15:15 Heparin 25,000 Units In 1/2 Ns 500 Ml IV TITRATE JAVAD Protocol 1,000 UNITS/HR Sodium Chloride 10 ml 01/30/20 14:44 Saline Flush FLUSH ASDIRECTED PRN Keep Vein Open Discontinued Medications Generic Name Dose Route Start Last Admin Trade Name Freq PRN Reason Stop Dose Admin Fentanyl 50 mcg 01/30/20 14:46 Sublimaze IVPUSH 01/30/20 14:47 ONETIME ONE Heparin Sodium (Porcine) 4,000 units 01/30/20 15:15 Heparin Sodium IVPUSH 01/30/20 15:16 .BOLUS ONE Heparin Sodium (Porcine) Confirm 01/30/20 15:25 Heparin Sodium Administered 01/30/20 15:26 Dose 5,000 units .ROUTE .STK-MED ONE Heparin Sodium/Sodium Chloride Confirm 01/30/20 15:25 Heparin 25,000 Units In 1/2 Ns 500 Ml Administered 01/30/20 15:26 Dose 500 mls @ as directed .ROUTE .STK-MED ONE Ondansetron HCl 4 mg 01/30/20 14:52 Zofran IVPUSH 01/30/20 14:53 ONETIME ONE Ondansetron HCl Confirm 01/30/20 15:00 Zofran Administered 01/30/20 15:01 Dose 4 mg .ROUTE .STK-MED ONE Departure - Departure Time of Disposition: 15:24 Disposition: DC/Tfer to [facility] 02 Clinical Impression: AICD discharge - Discharge Information Referrals: Jose Wesley NP [Primary Care Provider] - Forms: Interfacility Transfer EMTALA - Problem List Review Problem List Initiated/Reviewed/Updated: Yes - My Orders Last 24 Hours: My Active Orders 01/30/20 14:44 Sodium Chloride 0.9% [Saline Flush] 10 ml FLUSH ASDIRECTED PRN 01/30/20 14:45 EKG Documentation Completion [RC] STAT Peripheral IV Insertion Adult [OM.PC] Routine 01/30/20 15:00 Amiodarone 360 MG in D5W @ 33.333 MLS/HR(200ml) Amiodarone In Dextrose,Iso-Osm [Nexterone in Dextrose 360 MG/200 ML] 360 mg in 200 ml IV ASDIRECTED 01/30/20 15:15 Heparin Sodium/0.45% NaCl [Heparin 25,000 Units in 1/2 NS 500 ML] 25,000 units in 500 ml IV TITRATE - Assessment/Plan Last 24 Hours: My Active Orders 01/30/20 14:44 Sodium Chloride 0.9% [Saline Flush] 10 ml FLUSH ASDIRECTED PRN 01/30/20 14:45 EKG Documentation Completion [RC] STAT Peripheral IV Insertion Adult [OM.PC] Routine 01/30/20 15:00 Amiodarone 360 MG in D5W @ 33.333 MLS/HR(200ml) Amiodarone In Dextrose,Iso-Osm [Nexterone in Dextrose 360 MG/200 ML] 360 mg in 200 ml IV ASDIRECTED 01/30/20 15:15 Heparin Sodium/0.45% NaCl [Heparin 25,000 Units in 1/2 NS 500 ML] 25,000 units in 500 ml IV TITRATE Plan: Pt. will be transferred to [facility]. Dr. Soni is accepting. He will be transported via ALS ambulance. He was started on maintenance infusion of amiodarone. He was heparinized with 4000u bolus and 1000u/hr drip. Pt. was given fentanyl 50mg IV for pain control. Covid 19 was negative.
[2020-01-30] MEDS ORDERED: Heparin Sodium 5,000 Units/ML Vial ONE (15:25)
[2020-01-30] MEDS ORDERED: Heparin Sodium/0.45% NaCl 500 ML ONE (15:25)
== END 2020-01-30 15:50 | disposition short-term general hospital (02) ==
LOC: VM.ED 14:27
DX: T82.199A Other mechanical complication of unspecified cardiac device, initial encounter (principal); I25.10 Atherosclerotic heart disease of native coronary artery without angina pectoris; I50.9 Heart failure, unspecified; I25.2 Old myocardial infarction; J44.9 Chronic obstructive pulmonary disease, unspecified; E11.9 Type 2 diabetes mellitus without complications; Z79.82 Long term (current) use of aspirin; Z79.02 Long term (current) use of antithrombotics/antiplatelets; Z79.84 Long term (current) use of oral hypoglycemic drugs; Z79.899 Other long term (current) drug therapy; Z20.828 Contact with and (suspected) exposure to other viral communicable diseases; Z88.1 Allergy status to other antibiotic agents
CPT/HCPCS: 80053; 83735; 83880; 84443; 84484; 85025; 85610; 86140; 93005; 96361; 96374; 96375; 99284; 99285-25; J0282; J1644; J2405; J3010; U0002

== ENCOUNTER 2020-03-17 15:25 | Emergency (ER) | payer OTHER ==
[2020-03-17 16:16] LABS: CHLORIDE,CL 95 mmol/L (98-107); SODIUM,NA 132 mmol/L (136-145)
--- NOTE | 2020-03-17 16:16 | EDM.PDOC ---
ED HPI GENERAL MEDICAL PROBLEM - General Time Seen by Provider: 03/17/20 16:16 Source of Information: Reports: Patient, RN, RN Notes Reviewed History Limitations: Reports: No Limitations - History of Present Illness INITIAL COMMENTS - FREE TEXT/NARRATIVE: Patient presents ER from clinic with complaint of cough, mucus production, and shortness of breath worsening over the past week. Patient admits to mild fever and chills, nausea but no vomiting, denies diarrhea. Admits to constipation and the need to use stool softeners. Patient states about a month ago he was brought in by ambulance and transferred to [place] as his ICD had shocked him approximately 40 times. Patient states that he had an angiogram and stents were clear at that time. Denies any history of congestive heart failure. States he has had a cough, shortness of breath, and mucus production for greater than 6 months, but states it has been worsening over the past week. Onset: Gradual - Related Data Allergies Allergy/AdvReac Type Severity Reaction Status Date / Time nitrofurantoin Allergy Other Verified 03/17/20 18:47 tetracycline Allergy Hives Verified 03/17/20 18:47 Home Meds: Home Meds Albuterol/Ipratropium [DuoNeb 3.0-0.5 MG/3 ML] 1 inh NEB Q6H PRN 10/28/17 [History] Ibuprofen [Motrin Ib] 200 mg PO BID PRN 10/28/17 [History] Metoprolol Succinate [Toprol XL 100mg] 25 mg PO DAILY 10/28/17 [History] glipiZIDE [Glipizide ER] 5 mg PO DAILY 10/28/17 [History] lisinopriL [Zestril] 40 mg PO DAILY 10/28/17 [History] Aspirin 81 mg PO DAILY 09/04/19 [History] Chlorthalidone 25 mg PO DAILY 09/04/19 [History] Cholecalciferol (Vitamin D3) [Vitamin D3] 1,000 mg PO DAILY 09/04/19 [History] Clopidogrel Bisulfate [Plavix] 75 mg PO DAILY 09/04/19 [History] Tiotropium Br/Olodaterol HCl [Stiolto Respimat Inhal [place]] 2 inh PO DAILY 09/04/19 [History] amLODIPine Besylate [Norvasc] 5 mg PO DAILY 09/04/19 [History] Albuterol Sulfate 2.5 mg IH Q4HR PRN #30 vial.neb 10/03/19 [Rx] Tamsulosin [Tamsulosin 24 Hr] 0.4 mg PO DAILY 10/03/19 [History] atorvaSTATin Calcium [Lipitor] 40 mg PO DAILY 10/03/19 [History] sulfaSALAzine [Azulfidine] 500 mg PO BID 10/03/19 [History] Past Medical History HEENT History: Reports: Cataract, Sinusitis, Other (See Below) Other HEENT History: left eye problems, photo sensitive Cardiovascular History: Reports: Automatic Implantable Cardioverter Defibrillators, CAD, Heart Failure, [place], Pacemaker Respiratory History: Reports: COPD Gastrointestinal History: Reports: Hiatal Hernia, Other (See Below) Other Gastrointestinal History: diverticulitis Genitourinary History: Reports: Renal Calculus, Other (See Below) Other Genitourinary History: renal failure s/p pacer/aicd placement Musculoskeletal History: Reports: RA Neurological History: Reports: Migraines Psychiatric History: Reports: Addiction Endocrine/Metabolic History: Reports: Diabetes, Type II - Infectious Disease History Infectious Disease History: Reports: Chicken Pox, Measles - Past Surgical History HEENT Surgical History: Reports: Cataract Surgery Cardiovascular Surgical History: Reports: AICD, Carotid Stents, Pacer GI Surgical History: Reports: Appendectomy Male Surgical History: Reports: Kidney Stone Extraction Neurological Surgical History: Reports: Other (See Below) Other Neurological Surgeries/Procedures: back surgery x 2 Social & Family History - Family History Cardiac: Reports: Heart Failure Neurological: Reports: Alzheimers Disease Oncologic: Reports: Bone - Caffeine Use Caffeine Use: Reports: Coffee Caffeine Use Comment: 1 pot coffee/day ED ROS GENERAL - Review of Systems Review Of Systems: Comprehensive ROS is negative, except as noted in HPI. ED EXAM, GENERAL - Physical Exam Exam: See Below Exam Limited By: No Limitations General Appearance: Alert, WD/WN, Mild Distress Eye Exam: Bilateral Eye: EOMI, Normal Inspection Ears: Normal External Exam, Hearing Grossly Normal Nose: Normal Inspection Throat/Mouth: Normal Inspection, Normal Voice, No Airway Compromise, Other (clears throat frequently) Head: Atraumatic, Normocephalic Neck: Normal Inspection, Supple, Non-Tender, Full Range of Motion Respiratory/Chest: No Accessory Muscle Use, Chest Non-Tender, Decreased Breath Sounds (minimal air exchange), Crackles (throughout) Cardiovascular: Normal Peripheral Pulses, Regular Rate, Rhythm, No Edema, No Gallop, No JVD, No Murmur, No Rub Peripheral Pulses: 1+: Dorsalis Pedis (L), Dorsalis Pedis (R), 2+: Radial (L), Radial (R) GI/Abdominal: Normal Bowel Sounds, Soft, Non-Tender (Male) Exam: Deferred Rectal (Males) Exam: Deferred Back Exam: Normal Inspection, Full Range of Motion, NT Extremities: Normal Inspection, Normal Range of Motion, Non-Tender, Normal Capillary Refill, No Pedal Edema Neurological: Alert, Oriented, CN II-XII Intact, Normal Cognition, Normal Gait, Normal Reflexes, No Motor/Sensory Deficits Psychiatric: Normal Affect, Normal Mood Skin Exam: Warm, Dry, Intact, Normal Color, No Rash Lymphatic: No Adenopathy Course - Vital Signs Last Recorded V/S: Last Vital Signs Temp 96.9 F 03/17/20 15:30 Pulse 65 03/17/20 18:05 Resp 16 03/17/20 18:05 BP 113/65 03/17/20 18:05 Pulse Ox 98 03/17/20 18:05 - Orders/Labs/Meds Labs: Laboratory Tests 03/17/20 03/17/20 03/17/20 Range/Units 15:30 15:40 15:40 PT 10.9 (9.5-12.3) SEC INR 1.0 L (2.0-3.5) D-Dimer, Quantitative (<=0.58) mg/LFEU Sodium 132 L (136-145) mmol/L Potassium 4.5 (3.5-5.1) mmol/L Chloride 95 L (98-107) mmol/L Carbon Dioxide 30 (21-32) mmol/L Anion Gap 11.5 (10-20) mmol/L BUN 19 H (7-18) mg/dL Creatinine 1.0 (0.70-1.30) mg/dL Est Cr Clr Drug Dosing TNP Estimated GFR (MDRD) > 60 Glucose 136 H (74-106) mg/dL Lactic Acid (0.4-2.0) mmol/L Calcium 9.9 (8.5-10.1) mg/dL Corrected Calcium 10.70 H (8.5-10.1) mg/dL Magnesium 1.8 (1.8-2.4) mg/dL Total Bilirubin 0.4 (0.2-1.0) mg/dL AST 16 (15-37) U/L ALT 24 (16-63) U/L Alkaline Phosphatase 115 (46-116) U/L Lactate Dehydrogenase 197 (85-227) U/L Troponin I < 0.017 (<=0.056) ng/mL C-Reactive Protein 6.0 H (<=0.9) mg/dL NT-Pro-B Natriuret Pep (<=125) pg/mL Total Protein 6.4 (6.4-8.2) g/dL Albumin 3.0 L (3.4-5.0) g/dL Globulin 3.4 Albumin/Globulin Ratio 0.88 Urine Color (YELLOW) Urine Appearance (CLEAR) Urine pH (5.0-8.0) Ur Specific [place] Urine Protein (NEGATIVE) mg/dL Urine Glucose (UA) (NEGATIVE) mg/dL Urine Ketones (NEGATIVE) mg/dL Urine Occult Blood (NEGATIVE) Urine Nitrite (NEGATIVE) Urine Bilirubin (NEGATIVE) Urine Urobilinogen (0.2) EU/dL Ur Leukocyte Esterase (NEGATIVE) U Hyaline Cast (Auto) Urine RBC (NOT SEEN) /HPF Urine WBC (NOT SEEN) /HPF Ur Squamous Epith Cells (NEGATIVE) /HPF Urine Bacteria (NEGATIVE) /HPF Urine Mucus (NEGATIVE) /LPF SARS CoV-2 RNA Rapid SINA Negative (NEGATIVE) 03/17/20 03/17/20 03/17/20 Range/Units 15:40 15:40 15:40 PT (9.5-12.3) SEC INR (2.0-3.5) D-Dimer, Quantitative 0.79 H (<=0.58) mg/LFEU Sodium (136-145) mmol/L Potassium (3.5-5.1) mmol/L Chloride (98-107) mmol/L Carbon Dioxide (21-32) mmol/L Anion Gap (10-20) mmol/L BUN (7-18) mg/dL Creatinine (0.70-1.30) mg/dL Est Cr Clr Drug Dosing Estimated GFR (MDRD) Glucose (74-106) mg/dL Lactic Acid 2.0 (0.4-2.0) mmol/L Calcium (8.5-10.1) mg/dL Corrected Calcium (8.5-10.1) mg/dL Magnesium (1.8-2.4) mg/dL Total Bilirubin (0.2-1.0) mg/dL AST (15-37) U/L ALT (16-63) U/L Alkaline Phosphatase (46-116) U/L Lactate Dehydrogenase (85-227) U/L Troponin I (<=0.056) ng/mL C-Reactive Protein (<=0.9) mg/dL NT-Pro-B Natriuret Pep 1424 H (<=125) pg/mL Total Protein (6.4-8.2) g/dL Albumin (3.4-5.0) g/dL Globulin Albumin/Globulin Ratio Urine Color (YELLOW) Urine Appearance (CLEAR) Urine pH (5.0-8.0) Ur Specific [place] Urine Protein (NEGATIVE) mg/dL Urine Glucose (UA) (NEGATIVE) mg/dL Urine Ketones (NEGATIVE) mg/dL Urine Occult Blood (NEGATIVE) Urine Nitrite (NEGATIVE) Urine Bilirubin (NEGATIVE) Urine Urobilinogen (0.2) EU/dL Ur Leukocyte Esterase (NEGATIVE) U Hyaline Cast (Auto) Urine RBC (NOT SEEN) /HPF Urine WBC (NOT SEEN) /HPF Ur Squamous Epith Cells (NEGATIVE) /HPF Urine Bacteria (NEGATIVE) /HPF Urine Mucus (NEGATIVE) /LPF SARS CoV-2 RNA Rapid SINA (NEGATIVE) 03/17/20 Range/Units 16:40 PT (9.5-12.3) SEC INR (2.0-3.5) D-Dimer, Quantitative (<=0.58) mg/LFEU Sodium (136-145) mmol/L Potassium (3.5-5.1) mmol/L Chloride (98-107) mmol/L Carbon Dioxide (21-32) mmol/L Anion Gap (10-20) mmol/L BUN (7-18) mg/dL Creatinine (0.70-1.30) mg/dL Est Cr Clr Drug Dosing Estimated GFR (MDRD) Glucose (74-106) mg/dL Lactic Acid (0.4-2.0) mmol/L Calcium (8.5-10.1) mg/dL Corrected Calcium (8.5-10.1) mg/dL Magnesium (1.8-2.4) mg/dL Total Bilirubin (0.2-1.0) mg/dL AST (15-37) U/L ALT (16-63) U/L Alkaline Phosphatase (46-116) U/L Lactate Dehydrogenase (85-227) U/L Troponin I (<=0.056) ng/mL C-Reactive Protein (<=0.9) mg/dL NT-Pro-B Natriuret Pep (<=125) pg/mL Total Protein (6.4-8.2) g/dL Albumin (3.4-5.0) g/dL Globulin Albumin/Globulin Ratio Urine Color Yellow (YELLOW) Urine Appearance Clear (CLEAR) Urine pH 7.0 (5.0-8.0) Ur Specific [place] 1.020 Urine Protein Trace H (NEGATIVE) mg/dL Urine Glucose (UA) Negative (NEGATIVE) mg/dL Urine Ketones Negative (NEGATIVE) mg/dL Urine Occult Blood Negative (NEGATIVE) Urine Nitrite Negative (NEGATIVE) Urine Bilirubin Negative (NEGATIVE) Urine Urobilinogen 0.2 (0.2) EU/dL Ur Leukocyte Esterase Negative (NEGATIVE) U Hyaline Cast (Auto) Rare Urine RBC 0-5 (NOT SEEN) /HPF Urine WBC 0-5 (NOT SEEN) /HPF Ur Squamous Epith Cells Moderate H (NEGATIVE) /HPF Urine Bacteria Not seen (NEGATIVE) /HPF Urine Mucus Few H (NEGATIVE) /LPF SARS CoV-2 RNA Rapid SINA (NEGATIVE) Meds: Medications Discontinued Medications Generic Name Dose Route Start Last Admin Trade Name Freq PRN Reason Stop Dose Admin Furosemide 40 mg 03/17/20 18:14 03/17/20 18:50 Lasix IVPUSH 03/17/20 18:15 40 mg ONETIME ONE Administration Piperacillin Sod/Tazobactam 100 mls @ 200 mls/hr 03/17/20 19:06 03/17/20 19:14 Sod 3.375 gm/ Sodium Chloride IV 03/17/20 19:35 200 mls/hr STAT ONE Administration Iopamidol 100 ml 03/17/20 17:15 03/17/20 17:37 Isovue-300 (61%) IVPUSH 03/17/20 17:16 100 ml ONETIME ONE Administration - Radiology Interpretation Free Text/Narrative:: CHest CT with contrast: Negative for PE See rad report - Re-Assessments/Exams Free Text/Narrative Re-Assessment/Exam: 03/17/20 16:47 White blood count as per sent from primary care provider Jose Wesley, WBC: 18.7 RBC: 6.0 HGB: 15.4 HCT: 49.6 MCV: 82.7 MCH: 25.7 MCHC: 31.0 RDW: 14.0 PLT: 259 Neuts%: 83.4 Lymph%: 10.2 Sputum culture was collected and sent to lab. 03/17/20 19:03 Discussed patient case with Dr. Felix who agreed to accept the patient for transfer to the [place]. Departure - Departure Time of Disposition: 19:04 Disposition: DC/Tfer to Acute Hospital 02 Condition: Fair Clinical Impression: Pneumonia Qualifiers: Pneumonia type: due to unspecified organism Laterality: unspecified laterality Lung location: unspecified part of lung Qualified Code(s): J18.9 - Pneumonia, unspecified organism CHF (congestive heart failure) Qualifiers: Heart failure type: other Qualified Code(s): I50.9 - Heart failure, unspecified - Discharge Information *PRESCRIPTION DRUG MONITORING PROGRAM REVIEWED*: No *COPY OF PRESCRIPTION DRUG MONITORING REPORT IN PATIENT BASSEM: No Referrals: PCP,Unknown [Primary Care Provider] - Forms: Interfacility Transfer [facility]
[2020-03-17 16:22] LABS: ANION GAP 11.5 mmol/L (10-20)
[2020-03-17] MEDS ORDERED: Iopamidol 612 MG/ML 100 ML Bottle IVPUSH ONE (17:15)
[2020-03-17] MEDS ORDERED: Furosemide 40 MG/4 ML VIAL IVPUSH ONE (18:14)
--- NOTE | 2020-03-17 18:26 | CT ---
[id number] CT/CTA Chest EXAM: CTA Chest CLINICAL DATA: Chest pain and shortness of breath. COMPARISON STUDY: Radiograph from October 03, 2019. FINDINGS: Lungs: Bilateral central and lower lobe predominant peribronchial thickening. Peripheral predominant interlobular septal thickening and nodularity throughout both lungs. Findings are superimposed on changes of parenchymal emphysema, apical predominant. No pleural effusion or pneumothorax. Mediastinum: No mediastinal or hilar lymphadenopathy. Heart and great vessels: Cardiomegaly and coronary artery atherosclerosis. No pericardial effusion. Left chest wall cardiac conduction device in place. Thoracic aorta atherosclerosis. No aneurysm. No evidence of pulmonary embolus, within limitation of patient respiratory motion artifact in the lung bases. Bones: No acute fracture or compression deformity. Spondylosis. Upper abdomen: Small sliding-type hiatus hernia. Hypodense cystic appearing left renal mass partially visualized and incompletely evaluated as it extends beyond the field of view of this examination. IMPRESSION: Negative for pulmonary embolus within limitation of patient respiratory motion artifact. Extensive central and basal predominant peribronchial thickening with peripheral interlobular septal thickening and parenchymal nodularity. Combination of findings suggests infectious or inflammatory etiology, including infectious causes of bronchopneumonia. Although not entirely typical of Covid 19, this should remain within the differential diagnosis. Dustin Johnson MD 03/17/20 [id number] Thank you for allowing us to participate in the care of your patient.
[2020-03-17 19:03] VITALS: BP 113/65; PULSE 65
[2020-03-17] MEDS ORDERED: Piperacillin/Tazobactam 3.375 GM in Sodium Chloride 0.9% 100 ML IV ONE (19:06)
== END 2020-03-17 19:45 | disposition short-term general hospital (02) ==
LOC: VM.ED 15:25
DX: J18.9 Pneumonia, unspecified organism (principal); J44.9 Chronic obstructive pulmonary disease, unspecified; I50.9 Heart failure, unspecified; E11.9 Type 2 diabetes mellitus without complications; I25.10 Atherosclerotic heart disease of native coronary artery without angina pectoris; I25.2 Old myocardial infarction; M06.9 Rheumatoid arthritis, unspecified; Z88.1 Allergy status to other antibiotic agents; Z79.84 Long term (current) use of oral hypoglycemic drugs; Z79.899 Other long term (current) drug therapy; Z79.82 Long term (current) use of aspirin; Z79.02 Long term (current) use of antithrombotics/antiplatelets; Z20.828 Contact with and (suspected) exposure to other viral communicable diseases
CPT/HCPCS: 36415; 71275; 80053; 81001; 83605; 83615; 83735; 83880; 84484; 85379; 85610; 86140; 87040; 87635; 87804; 93005; 96365; 96375; 99284; 99285; J1940; J2543; J7050; Q9967; U0002

== ENCOUNTER 2020-04-20 10:59 | Inpatient (IN) | payer OTHER ==
--- NOTE | 2020-04-20 11:24 | EDM.PDOC ---
ED HPI GENERAL MEDICAL PROBLEM - General Chief Complaint: Chest Pain Time Seen by Provider: 04/20/20 11:00 Source of Information: Reports: Patient, EMS History Limitations: Reports: No Limitations - History of Present Illness INITIAL COMMENTS - FREE TEXT/NARRATIVE: Pt. presents to ER with complaints or lightheadedness, possible syncope, and epigastric pain. Pt. states that he has been experiencing the epigastric pain for some time, but states that the discomfort was worse today and associated with lightheadedness. Pt. states that he has been experiencing cough, productive or yellowish sputum, and states that he was treated for pneumonia 2 months ago. In reviewing his chart, it looks at though [facility]. Pt. states that he has not been diaphoretic. Onset: Today Location: Reports: Abdomen, Generalized Mid-Sternal Pain Score (Numeric/FACES): 2 - Related Data Allergies Allergy/AdvReac Type Severity Reaction Status Date / Time nitrofurantoin Allergy Other Verified 04/20/20 11:24 tetracycline Allergy Hives Verified 04/20/20 11:24 Home Meds: Home Meds Albuterol/Ipratropium [DuoNeb 3.0-0.5 MG/3 ML] 1 inh NEB Q6H PRN 10/28/17 [History] Ibuprofen [Motrin Ib] 200 mg PO BID PRN 10/28/17 [History] Metoprolol Succinate [Toprol XL 100mg] 25 mg PO DAILY 10/28/17 [History] glipiZIDE [Glipizide ER] 5 mg PO DAILY 10/28/17 [History] lisinopriL [Zestril] 40 mg PO DAILY 10/28/17 [History] Aspirin 81 mg PO DAILY 09/04/19 [History] Chlorthalidone 25 mg PO DAILY 09/04/19 [History] Cholecalciferol (Vitamin D3) [Vitamin D3] 1,000 mg PO DAILY 09/04/19 [History] Clopidogrel Bisulfate [Plavix] 75 mg PO DAILY 09/04/19 [History] Tiotropium Br/Olodaterol HCl [Stiolto Respimat Inhal [place]] 2 inh PO DAILY 09/04/19 [History] Tamsulosin [Tamsulosin 24 Hr] 0.4 mg PO DAILY 10/03/19 [History] Magnesium Oxide 420 mg PO DAILY 04/20/20 [History] Mexiletine [Mexitil] 150 mg PO Q8H 04/20/20 [History] Nitroglycerin [Nitrostat] 0.4 mg SL Q5M 04/20/20 [History] Pantoprazole Sodium [Protonix] 40 mg PO DAILY 04/20/20 [History] Rosuvastatin Calcium [Crestor] 40 mg PO BEDTIME 04/20/20 [History] Sotalol HCl [Sotalol] 120 mg PO BID 04/20/20 [History] metFORMIN [Glucophage] 1,000 mg PO BIDMEALS 04/20/20 [History] predniSONE [Prednisone] 5 mg PO DAILY 04/20/20 [History] Past Medical History HEENT History: Reports: Cataract, Sinusitis, Other (See Below) Other HEENT History: left eye problems, photo sensitive Cardiovascular History: Reports: Automatic Implantable Cardioverter Defibrillators, CAD, Heart Failure, [place], Pacemaker Respiratory History: Reports: COPD Gastrointestinal History: Reports: Hiatal Hernia, Other (See Below) Other Gastrointestinal History: diverticulitis Genitourinary History: Reports: Renal Calculus, Other (See Below) Other Genitourinary History: renal failure s/p pacer/aicd placement Musculoskeletal History: Reports: RA Neurological History: Reports: Migraines Psychiatric History: Reports: Addiction Endocrine/Metabolic History: Reports: Diabetes, Type II - Infectious Disease History Infectious Disease History: Reports: Chicken Pox, Measles - Past Surgical History HEENT Surgical History: Reports: Cataract Surgery Cardiovascular Surgical History: Reports: AICD, Carotid Stents, Pacer GI Surgical History: Reports: Appendectomy Male Surgical History: Reports: Kidney Stone Extraction Neurological Surgical History: Reports: Other (See Below) Other Neurological Surgeries/Procedures: back surgery x 2 Social & Family History - Family History Cardiac: Reports: Heart Failure Neurological: Reports: Alzheimers Disease Oncologic: Reports: Bone - Caffeine Use Caffeine Use: Reports: Coffee Caffeine Use Comment: 1 pot coffee/day ED ROS GENERAL - Review of Systems Review Of Systems: See Below Constitutional: Reports: No Symptoms HEENT: Reports: No Symptoms Respiratory: Reports: Shortness of Breath, Cough, Sputum Cardiovascular: Reports: Chest Pain, Lightheadedness Endocrine: Reports: No Symptoms GI/Abdominal: Reports: Abdominal Pain : Reports: No Symptoms Musculoskeletal: Reports: No Symptoms Skin: Reports: No Symptoms Neurological: Reports: No Symptoms Psychiatric: Reports: No Symptoms Hematologic/Lymphatic: Reports: No Symptoms Immunologic: Reports: No Symptoms ED EXAM, GENERAL - Physical Exam Exam: See Below Exam Limited By: No Limitations General Appearance: Alert, WD/WN, No Apparent Distress Eye Exam: Bilateral Eye: EOMI Throat/Mouth: Normal Inspection, Normal Lips, Normal Teeth, Normal Voice, No Airway Compromise Head: Atraumatic, Normocephalic Neck: Supple, Non-Tender Respiratory/Chest: No Respiratory Distress, Lungs Clear, Normal Breath Sounds, No Accessory Muscle Use, Chest Non-Tender Cardiovascular: Normal Peripheral Pulses Peripheral Pulses: 4+: Dorsalis Pedis (L), Dorsalis Pedis (R) GI/Abdominal: Soft, No Distention, No Mass, Other (epigastric pain, not worse with palpation) Neurological: Alert, Oriented, CN II-XII Intact, Normal Cognition, Normal Reflexes, No Motor/Sensory Deficits Psychiatric: Normal Affect, Normal Mood Skin Exam: Warm, Dry, Intact, No Rash, Pallor Course - Vital Signs Last Recorded V/S: Last Vital Signs Temp 36.3 C 04/20/20 15:16 Pulse 61 04/20/20 15:16 Resp 20 04/20/20 15:16 BP 115/84 04/20/20 15:16 Pulse Ox 93 L 04/20/20 15:16 - Orders/Labs/Meds Orders: Active Orders 24 hr Category Date Time Status CULTURE BLOOD [BC] Stat Lab 04/20/20 11:47 Received CULTURE BLOOD [BC] Stat Lab 04/20/20 11:50 Received Blood Culture x2 Reflex Set [OM.PC] Stat Oth 04/20/20 11:10 Ordered Medication Orders Albuterol/Ipratropium (Duoneb 3.0-0.5 Mg/3 Ml) 3 ml NEB Q4HWA JAVAD Ceftriaxone Sodium (Rocephin) 1 gm IVPUSH DAILY JAVAD Sodium Chloride (Normal Saline) 1,000 mls @ 50 mls/hr IV ASDIRECTED JAVAD Azithromycin 500 mg/ Sodium (Chloride) 250 mls @ 250 mls/hr IV DAILY JAVAD Labs: Laboratory Tests 04/20/20 04/20/20 04/20/20 Range/Units 11:11 11:50 11:50 WBC 18.4 H (4.0-10.0) x10^3/uL RBC 5.61 (4.5-6.0) x10^6/uL Hgb 14.6 D (14.0-18.0) g/dL Hct 44.6 (40.0-52.0) % MCV 79.5 (78.0-93.0) fL MCH 26.0 (26.0-32.0) pg MCHC 32.7 (32.0-36.0) g/dL RDW Coeff of Maximino 15.8 H (10.0-15.0) % Plt Count 274 (130-400) x10^3/uL Neut % (Auto) 89.8 H (50.0-80.0) % Lymph % (Auto) 6.0 L (25.0-50.0) % [place] % (Auto) 3.0 (2.0-11.0) % Eos % (Auto) 1.1 (0.0-4.0) % Baso % (Auto) 0.1 L (0.2-1.2) % PT 10.5 (9.5-12.3) SEC INR 1.0 L (2.0-3.5) APTT (25.6-32.8) SEC Sodium (136-145) mmol/L Potassium (3.5-5.1) mmol/L Chloride (98-107) mmol/L Carbon Dioxide (21-32) mmol/L Anion Gap (10-20) mmol/L BUN (7-18) mg/dL Creatinine (0.70-1.30) mg/dL Est Cr Clr Drug Dosing Estimated GFR (MDRD) Glucose (74-106) mg/dL Lactic Acid (0.4-2.0) mmol/L Calcium (8.5-10.1) mg/dL Corrected Calcium (8.5-10.1) mg/dL Phosphorus (2.6-4.7) mg/dL Magnesium (1.8-2.4) mg/dL Total Bilirubin (0.2-1.0) mg/dL AST (15-37) U/L ALT (16-63) U/L Alkaline Phosphatase (46-116) U/L Troponin I (<=0.056) ng/mL C-Reactive Protein (<=0.9) mg/dL NT-Pro-B Natriuret Pep (<=125) pg/mL Total Protein (6.4-8.2) g/dL Albumin (3.4-5.0) g/dL Globulin Albumin/Globulin Ratio SARS CoV-2 RNA Rapid SINA Negative (NEGATIVE) 04/20/20 04/20/20 04/20/20 Range/Units 11:50 11:50 11:50 WBC (4.0-10.0) x10^3/uL RBC (4.5-6.0) x10^6/uL Hgb (14.0-18.0) g/dL Hct (40.0-52.0) % MCV (78.0-93.0) fL MCH (26.0-32.0) pg MCHC (32.0-36.0) g/dL RDW Coeff of Maximino (10.0-15.0) % Plt Count (130-400) x10^3/uL Neut % (Auto) (50.0-80.0) % Lymph % (Auto) (25.0-50.0) % [place] % (Auto) (2.0-11.0) % Eos % (Auto) (0.0-4.0) % Baso % (Auto) (0.2-1.2) % PT (9.5-12.3) SEC INR (2.0-3.5) APTT 24.3 L (25.6-32.8) SEC Sodium 133 L (136-145) mmol/L Potassium 4.5 (3.5-5.1) mmol/L Chloride 97 L (98-107) mmol/L Carbon Dioxide 30 (21-32) mmol/L Anion Gap 10.5 (10-20) mmol/L BUN 21 H (7-18) mg/dL Creatinine 1.1 (0.70-1.30) mg/dL Est Cr Clr Drug Dosing TNP Estimated GFR (MDRD) > 60 Glucose 248 H (74-106) mg/dL Lactic Acid 1.7 (0.4-2.0) mmol/L Calcium 9.9 (8.5-10.1) mg/dL Corrected Calcium 10.78 H (8.5-10.1) mg/dL Phosphorus (2.6-4.7) mg/dL Magnesium 1.8 (1.8-2.4) mg/dL Total Bilirubin 0.3 (0.2-1.0) mg/dL AST 11 L (15-37) U/L ALT 22 (16-63) U/L Alkaline Phosphatase 118 H (46-116) U/L Troponin I < 0.017 (<=0.056) ng/mL C-Reactive Protein 8.6 H (<=0.9) mg/dL NT-Pro-B Natriuret Pep 2019 H (<=125) pg/mL Total Protein 6.5 (6.4-8.2) g/dL Albumin 2.9 L (3.4-5.0) g/dL Globulin 3.6 Albumin/Globulin Ratio 0.81 SARS CoV-2 RNA Rapid SINA (NEGATIVE) 04/20/20 Range/Units 11:50 WBC (4.0-10.0) x10^3/uL RBC (4.5-6.0) x10^6/uL Hgb (14.0-18.0) g/dL Hct (40.0-52.0) % MCV (78.0-93.0) fL MCH (26.0-32.0) pg MCHC (32.0-36.0) g/dL RDW Coeff of Maximino (10.0-15.0) % Plt Count (130-400) x10^3/uL Neut % (Auto) (50.0-80.0) % Lymph % (Auto) (25.0-50.0) % [place] % (Auto) (2.0-11.0) % Eos % (Auto) (0.0-4.0) % Baso % (Auto) (0.2-1.2) % PT (9.5-12.3) SEC INR (2.0-3.5) APTT (25.6-32.8) SEC Sodium (136-145) mmol/L Potassium (3.5-5.1) mmol/L Chloride (98-107) mmol/L Carbon Dioxide (21-32) mmol/L Anion Gap (10-20) mmol/L BUN (7-18) mg/dL Creatinine (0.70-1.30) mg/dL Est Cr Clr Drug Dosing Estimated GFR (MDRD) Glucose (74-106) mg/dL Lactic Acid (0.4-2.0) mmol/L Calcium (8.5-10.1) mg/dL Corrected Calcium (8.5-10.1) mg/dL Phosphorus 3.0 (2.6-4.7) mg/dL Magnesium (1.8-2.4) mg/dL Total Bilirubin (0.2-1.0) mg/dL AST (15-37) U/L ALT (16-63) U/L Alkaline Phosphatase (46-116) U/L Troponin I (<=0.056) ng/mL C-Reactive Protein (<=0.9) mg/dL NT-Pro-B Natriuret Pep (<=125) pg/mL Total Protein (6.4-8.2) g/dL Albumin (3.4-5.0) g/dL Globulin Albumin/Globulin Ratio SARS CoV-2 RNA Rapid SINA (NEGATIVE) Meds: Medications Generic Name Dose Route Start Last Admin Trade Name Liam PRN Reason Stop Dose Admin Albuterol/Ipratropium 3 ml 04/20/20 16:00 Duoneb 3.0-0.5 Mg/3 Ml NEB Q4HWA JAVAD Ceftriaxone Sodium 1 gm 04/21/20 08:00 Rocephin IVPUSH DAILY JAVAD Sodium Chloride 1,000 mls @ 50 mls/hr 04/20/20 16:00 Normal Saline IV ASDIRECTED JAVAD Azithromycin 500 mg/ Sodium 250 mls @ 250 mls/hr 04/21/20 08:00 Chloride IV DAILY JAVAD Discontinued Medications Generic Name Dose Route Start Last Admin Trade Name Liam PRN Reason Stop Dose Admin Aspirin 324 mg 04/20/20 11:29 04/20/20 11:05 Aspirin PO 04/20/20 11:30 324 mg ONETIME ONE Administration Ceftriaxone Sodium 2 gm 04/20/20 14:16 04/20/20 14:34 Rocephin IVPUSH 04/20/20 14:17 2 gm STAT ONE Administration Azithromycin 500 mg/ Sodium 250 mls @ 250 mls/hr 04/20/20 14:16 04/20/20 14:38 Chloride IV 04/20/20 15:15 250 mls/hr STAT ONE Administration Iopamidol 100 ml 04/20/20 11:59 04/20/20 12:04 Isovue-300 (61%) IVPUSH 04/20/20 12:00 100 ml ONETIME ONE Administration Methylprednisolone Sodium Succinate 125 mg 04/20/20 14:17 04/20/20 14:32 Solu-Medrol IV 04/20/20 14:18 125 mg ONETIME ONE Administration - Radiology Interpretation Free Text/Narrative:: See attached report. Findings consistent with atypical pneumonia. 15mm. L iliac aneurysm, no active dissection, reviewed by [place] vascular surgery. Departure - Departure Time of Disposition: 13:30 Disposition: Admitted As Inpatient 68 Clinical Impression: Pneumonia Qualifiers: Pneumonia type: due to unspecified organism Laterality: unspecified laterality Lung location: unspecified part of lung Qualified Code(s): J18.9 - Pneumonia, unspecified organism - Discharge Information Sepsis Event Note (ED) - Evaluation Sepsis Screening Result: No Definite Risk - Focused Exam Vital Signs: Vital Signs Temp Pulse Resp BP Pulse Ox 04/20/20 13:16 57 L 12 147/74 H 95 04/20/20 11:00 36.7 C 63 24 H 193/88 H 95 - My Orders Last 24 Hours: My Active Orders 04/20/20 11:10 Blood Culture x2 Reflex Set [OM.PC] Stat 04/20/20 11:47 CULTURE BLOOD [BC] Stat 04/20/20 11:50 CULTURE BLOOD [BC] Stat - Assessment/Plan Last 24 Hours: My Active Orders 04/20/20 11:10 Blood Culture x2 Reflex Set [OM.PC] Stat 04/20/20 11:47 CULTURE BLOOD [BC] Stat 04/20/20 11:50 CULTURE BLOOD [BC] Stat Plan: Pt. was started on rocephin and azithromycin in ER. He was also given solu medrol 125mg IV. Pt. will be admitted acutely by ELVIE Petersen. Pt. is a code 1. All questions were answered.
[2020-04-20] MEDS ORDERED: Aspirin 81 MG Tab.Chew PO ONE (11:29)
[2020-04-20] MEDS ORDERED: Iopamidol 612 MG/ML 100 ML Bottle IVPUSH ONE (11:59)
[2020-04-20 12:25] LABS: ANION GAP 10.5 mmol/L (10-20); CHLORIDE,CL 97 mmol/L (98-107); SODIUM,NA 133 mmol/L (136-145)
--- NOTE | 2020-04-20 13:09 | CT ---
[id number] CT/CTA Chest Abdomen Pelvis EXAM: CTA Chest Abdomen Pelvis INDICATION: EPIGASTRIC PAIN, NEAR SYNCOPE. COMPARISON: March 17, 2020. FINDINGS: Sequela of COPD with bronchitis and mild to moderate apical predominant paraseptal emphysema. There are multiple peripheral and bronchovascular predominant nodular opacities and areas of consolidation which have mildly increased. Atypical infection is favored. Left subclavian approach pacemaker leads RA and RV. Mild to moderate gynecomastia. There are scattered nonobstructing bilateral intrarenal calculi with a maximum diameter of about 4 mm. Bilateral renal cysts the largest in the left about 31 mm and on the right 21 mm. Atherosclerotic plaque throughout the aorta and its major branches including the coronary arteries. There is a focal 15 mm saccular aneurysm at the bifurcation of the left common iliac artery with a focal high-grade stenosis suggested. The amount of calcification within the vessel somewhat limits quantification of the stenosis. Other scattered areas of bilateral iliac and femoral artery stenosis are mild to moderate grade. No dissection or other acute findings. Small sliding type hiatus hernia. No pulmonary embolism. Degenerative changes in the spine. Straightening of the lumbar lordosis. Mild distention of the urinary bladder. The heart is normal in size. No pleural or pericardial effusion. The liver, gallbladder, spleen, pancreas, adrenal glands and small bowel are normal in appearance. There are multiple diverticula of the colon with an otherwise normal-appearing colon. IMPRESSION: 1. Mildly increased bilateral peripheral nodular and airspace opacities in both lungs, favor atypical infection. 2. Extensive atherosclerotic plaque throughout the aorta and its major branches with a focal saccular aneurysm and high-grade stenosis at the bifurcation of the left common iliac artery. Jagjit Mendes MD 04/20/20 [id number] Thank you for allowing us to participate in the care of your patient.
[2020-04-20] MEDS ORDERED: Azithromycin 500 MG in Sodium Chloride 0.9% 250 ML IV ONE (14:16)
[2020-04-20] MEDS ORDERED: cefTRIAXone 2 GM Vial IVPUSH ONE (14:16)
[2020-04-20] MEDS ORDERED: methylPREDNISolone Sodium Succinate 125 MG/2 ML SDV IV ONE (14:17)
[2020-04-20] MEDS: Sodium Chloride 0.9% 1,000 ML IV SCH (16:59)
[2020-04-20] MEDS: Albuterol/Ipratropium 3.0-0.5 MG/3 ML Neb Soln NEB SCH ×3 (17:00→23:51)
[2020-04-20] MEDS: glipiZIDE 5 MG Tab.ER PO SCH (20:22)
[2020-04-20] MEDS: atorvaSTATin 40 MG Tab PO SCH (20:22)
[2020-04-20] MEDS: Sotalol 80 MG Tab PO SCH (20:22)
--- NOTE | 2020-04-20 21:44 | HP ---
CHIEF COMPLAINT: 1. Shortness of breath. 2. Epigastric pain. 3. Dizziness. HISTORY OF PRESENT ILLNESS: A 70-year-old male patient who presented to the emergency room at [facility] this morning via EMS for the above referenced complaints. The patient states that his symptoms started earlier this morning. The patient has a longstanding history of epigastric pain. He is currently on Protonix, which seems to help. The patient states he felt very lightheaded. He states he did not fall. The patient complains of a cough that has been productive, producing a green/yellow appearing purulent sputum. The patient was treated at the [facility] about 1 month ago for pneumonia. He was also treated for pneumonia roughly 3 months ago at the [facility]. The patient has not felt sweaty. No change in medications. The patient states he is taking his medications as directed. The patient denies any headaches. The patient states he has intermittent shortness of breath. The patient states that he is coughing frequently. The patient has not experienced any fevers or chills. The patient denied any nausea, vomiting, or diarrhea. The patient states he has been trying to stay well hydrated with good p.o. fluid intake. No close contacts or family members with similar symptoms. In the emergency room, the patient had laboratory work and a CT scan of the chest, abdomen, and pelvis with IV contrast. The patient was given 1 g of IV Rocephin as well as 500 mg of IV Zithromax. The patient was not started on any fluids. PAST MEDICAL HISTORY: 1. COPD. 2. Essential hypertension associated with diabetes. 3. Diabetes mellitus, uncontrolled, not on long-term insulin. 4. Mixed hyperlipidemia associated with diabetes. 5. History of AICD implant. 6. Coronary artery disease. 7. Heart failure. 8. Photosensitivity. 9. Renal calculus. 10.History of renal failure. 11.Rheumatoid arthritis. 12.History of migraine. PAST SURGICAL HISTORY: 1. Cataract surgery. 2. AICD placement. 3. Carotid stents. 4. Appendectomy. 5. Kidney stone extraction. 6. Back surgery x2. FAMILY HISTORY: Noncontributory. SOCIAL HISTORY: The patient is up to date with all immunizations. The patient denies any current cigarette smoking. The patient does not drink alcohol. The patient currently lives with his son, Frederick. ALLERGIES: 1. Nitrofurantoin. 2. Tetracycline. MEDICATIONS: 1. Magnesium 133 mg 1 tablet p.o. daily. 2. Prednisone 5 mg 1 tablet p.o. daily. 3. Metformin 1000 mg 1 tablet p.o. twice daily. 4. Lisinopril 2.5 mg 1 tablet p.o. daily. 5. Glipizide 5 mg 1 tablet p.o. twice daily. 6. Stiolto Respimat 2 puffs via inhalation daily. 7. Tamsulosin 0.4 mg 1 tablet p.o. daily. 8. Sotalol 120 mg p.o. twice daily. 9. Rosuvastatin 40 mg 1 tablet p.o. daily at bedtime. 10.Pantoprazole 40 mg 1 tablet p.o. daily. 11.Nitrostat 0.4 mg 1 tablet sublingual every 5 minutes as needed for chest pain. 12.Mexitil 150 mg 1 tablet p.o. every 8 hours. 13.Metoprolol succinate 200 mg 1 tablet p.o. daily. 14.Magnesium oxide 420 mg 1 tablet p.o. daily. 15.Ibuprofen 200 mg 1 tablet p.o. twice daily as needed. 16.Plavix 75 mg 1 tablet p.o. daily. 17.Vitamin D 1000 units 1 tablet p.o. daily. 18.Chlorthalidone 12.5 mg 1 tablet p.o. daily. 19.Aspirin 81 mg 1 tablet p.o. daily. 20.DuoNeb 3.0 mg/0.5 mg/3 mL 1 capsule via nebulizer every 6 hours as needed. LABORATORY WORK: 1. CBC: White blood cell count 18.4, hemoglobin 14.6, hematocrit 44.6, platelet count 274,000. 2. PT 10.5, INR 1.0, PTT 24.3. 3. CMP: Sodium 133, potassium 4.5, chloride 97, CO2 of 30, anion gap 10.5, BUN 21, creatinine 1.1, GFR greater than 60, glucose 248, calcium 9.9, total bilirubin 0.3, AST 11, ALT 22, alkaline phosphatase 118, total protein 6.5, albumin 2.9. 4. Magnesium 1.8. 5. Phosphorous 3.0. 6. Lactic acid 1.7. 7. C-reactive protein 8.6. 8. Troponin less than 0.017. 9. BNP 2019. 10.Urinalysis; pH 7.0, specific gravity 1.015, positive protein, positive blood, negative leukocyte esterase, negative wbc's. 11.Coronavirus-19 negative. REVIEW OF SYSTEMS: Constitutional: Negative. Skin: Negative. Respiratory: Complains of shortness of breath and productive cough. Cardiovascular: Denies chest pain. Abdomen: Complains of epigastric pain. Neurological: Negative. PHYSICAL EXAMINATION: Vital Signs: Height 5 feet 5 inches, weight 140 pounds, temperature 97.4, pulse 61, blood pressure 115/84, respirations 20, oxygen saturation 93% on 3 L. Cardiovascular: Regular rate and rhythm, no murmur. Respiratory: Bibasilar crackles with scattered rhonchi throughout. End- expiratory wheezes, upper lobes bilaterally. Abdomen: Soft, nontender. Bowel sounds are normoactive x4. Skin: Intact, warm and dry. Neurological: The patient is alert. The patient is cooperative. The patient is oriented to person, place, and time. No focal neurological deficits. ASSESSMENT: 1. Atypical pneumonia. 2. Acute on chronic obstructive pulmonary disease exacerbation. 3. Bandemia. 4. Hyperglycemia. 5. Diabetes mellitus type 2, uncontrolled, not on long-term insulin. 6. Hypertension associated with diabetes type 2. 7. Hyperlipidemia associated with diabetes type 2. 8. Congestive heart failure, chronic. 9. Rheumatoid arthritis. PLAN: A 70-year-old male patient is admitted to the acute care floor at [facility] for the above-mentioned diagnoses. The patient will continue on Rocephin and Zithromax. We will check blood work and urine studies for atypical pneumonias. Consult Respiratory Therapy for incentive spirometry and nebulizer therapy. Continue home medications the same. We will hold ibuprofen. We will also hold metformin since the patient received contrast dye during CT scan today. The patient is a full code. The patient does wish to be transferred to a higher level of care should the need arise. Given the patient's history of chronic pneumonias, may consider transfer versus Pulmonary Medicine versus Infectious Disease consult, depending upon how the patient does over the next couple of days. We will await test results. We will check an EKG on the floor given the epigastric pain and history of NE. We will gently rehydrate the patient with normal saline at 50 mL/hour. I anticipate the patient to be admitted at least 3 to 4 days. This patient was seen and examined by me as an [facility] provider. TB: 04/20/2020 20:23:27 MODL: 04/20/2020 21:39:15 /[id number]
[2020-04-20] MEDS ORDERED: Insulin Lispro 100 Units/ML 3 ML Vial SUBCUT ONE (21:52)
[2020-04-20] MEDS ORDERED: Glucagon,Human Recombinant 1 MG Vial IM PRN ×2 (21:52→22:09)
[2020-04-20] MEDS ORDERED: 50% Dextrose in Water 50 ML Syringe IV PRN ×2 (21:52→22:09)
[2020-04-20] MEDS ORDERED: Insulin Regular, Human 100 Units/ML 3 ML Vial SUBCUT ONE (22:15)
[2020-04-21] MEDS: Albuterol/Ipratropium 3.0-0.5 MG/3 ML Neb Soln NEB SCH ×6 (04:25→23:04)
[2020-04-21] MEDS: glipiZIDE 5 MG Tab.ER PO SCH (06:41)
[2020-04-21 06:58] LABS: CHLORIDE,CL 99 mmol/L (98-107); SODIUM,NA 134 mmol/L (136-145)
[2020-04-21 07:03] LABS: ANION GAP 10.3 mmol/L (10-20)
[2020-04-21] MEDS ORDERED: Insulin Regular, Human 100 Units/ML 3 ML Vial SUBCUT PRN (07:12)
[2020-04-21] MEDS ORDERED: Meclizine 25 MG Tab PO PRN (07:15)
[2020-04-21] MEDS ORDERED: Lisinopril 2.5 MG Tab PO SCH (08:00)
[2020-04-21] MEDS ORDERED: Tiotropium BR/Olodaterol HCL 4 GM Inhalation Spray 2.5mcg/1 dose; 10 doses INH SCH (08:00)
[2020-04-21] MEDS: Sodium Chloride 0.9% 1,000 ML IV SCH (08:36)
[2020-04-21] MEDS: Metoprolol Succinate 50 MG Tab.ER PO SCH (08:38)
[2020-04-21] MEDS: Magnesium Oxide 400 MG Tab PO SCH (08:38)
[2020-04-21] MEDS: Aspirin 81 MG Tab.Chew PO SCH (08:41)
[2020-04-21] MEDS: Tamsulosin 0.4 MG Cap.ER PO SCH (08:42)
[2020-04-21] MEDS: Clopidogrel 75 MG Tab PO SCH (08:42)
[2020-04-21] MEDS: Sotalol 80 MG Tab PO SCH ×2 (08:42→20:05)
[2020-04-21] MEDS: Cholecalciferol (Vitamin D3) 25 MCG Tab PO SCH (08:43)
[2020-04-21] MEDS: Pantoprazole 40 MG Tab.CR PO SCH (08:43)
[2020-04-21] MEDS: predniSONE 10 MG Tab PO SCH (08:43)
[2020-04-21] MEDS: Tiotropium BR/Olodaterol HCL 4 GM Inhalation Spray 2.5mcg/1 dose; 10 doses INH SCH (08:48)
[2020-04-21] MEDS: MEXILETINE 150 MG PO SCH ×5 (08:54→20:08)
[2020-04-21] MEDS: Chlorthalidone 25 MG Tab PO SCH (08:54)
[2020-04-21] MEDS: Azithromycin 500 MG in Sodium Chloride 0.9% 250 ML IV SCH (11:26)
[2020-04-21] MEDS: cefTRIAXone 1 GM Vial IVPUSH SCH (11:27)
--- NOTE | 2020-04-21 11:51 | PN ---
Progress Note for THALIA CROWLEY Date: 04/21/2020 Room #: VM.204 SUBJECTIVE: Hospital day #2 for a 70-year-old male patient who was admitted yesterday for atypical pneumonia, acute on chronic COPD exacerbation, bandemia, hyperglycemia. The patient is resting comfortably this morning. The patient complains of significant dizziness, especially when turning his head from side to side. The patient continues to have a productive cough, producing a green/yellow appearing purulent sputum. The patient states he feels short of breath with activity. The patient has not had any chest pain or palpitations. The patient denies any headaches. He feels somewhat lightheaded when getting up out of bed. The patient denies any abdominal pain. The patient has not had any nausea or vomiting. The patient states that he did feel diaphoretic last night. He has some night sweats overnight. The patient did have elevated blood sugars overnight. We are holding the patient's metformin since he had IV contrast. Blood sugars overnight ranged anywhere from 251 to 413. The patient did get 10 units of subcu insulin. His blood sugar this morning is 266. OBJECTIVE: Vital Signs: Temperature 98, pulse 56, blood pressure 148/57, respiratory rate 20, oxygen saturation 92% on 3 L. Weight is 144.4 pounds. Skin: Intact, warm, and dry. Respiratory: End-expiratory wheezing in upper lobes. Bibasilar crackles with scattered rhonchi throughout. Cardiovascular: Regular rate and rhythm. No murmur. Abdomen: Soft, nontender. Bowel sounds are hypoactive x4. Neurological: The patient is alert. The patient is oriented x3. No focal neurological deficits. LABORATORY STUDIES: 1. CBC: White cell count 18.7, hemoglobin 13.9, hematocrit 42.4, platelets 275,000. 2. BMP: Sodium 134, potassium 4.3, chloride 99, CO2 of 29, anion gap 10.3, BUN 28, creatinine 1.2, GFR greater than 60, glucose 290, calcium 9.7. 3. Magnesium 2.1. ASSESSMENT: 1. Atypical pneumonia. 2. Acute chronic obstructive pulmonary disease exacerbation. 3. Bandemia. 4. Hyperglycemia. 5. Diabetes mellitus type 2, uncontrolled, not on long-term insulin. 6. Hypertension associated with diabetes type 2. 7. Hyperlipidemia associated with type 2 diabetes. 8. Congestive heart failure, chronic. 9. Rheumatoid arthritis. PLAN: A 70-year-old male patient, hospital day #2, admitted to the acute care floor at [facility] for the above-mentioned diagnoses. We will continue the patient on Rocephin and Zithromax for atypical pneumonia. Awaiting blood cultures and blood tests for atypical pneumonia. We will start the patient on a p.r.n. sliding scale for his blood sugar until metformin can get restarted. We will ask Physical Therapy to see the patient for vestibular rehab. We will watch fluids closely given history of congestive heart failure. Continue with respiratory therapy cares. Would like to discontinue ibuprofen. The patient is a full code. Continue with acute cares for now. This patient was seen and examined by me as an [facility] provider. TB: 04/21/2020 07:51:31 MODL: 04/21/2020 11:39:15 /[id number]
[2020-04-21] MEDS ORDERED: 50% Dextrose in Water 50 ML Syringe IV PRN ×2 (12:08→13:31)
[2020-04-21] MEDS ORDERED: Glucagon,Human Recombinant 1 MG Vial IM PRN ×2 (12:08→13:31)
[2020-04-21] MEDS ORDERED: Insulin Regular, Human 100 Units/ML 3 ML Vial IVPUSH STA ×2 (12:08→13:31)
[2020-04-21] MEDS: glipiZIDE 5 MG Tab PO SCH (17:49)
[2020-04-21] MEDS: atorvaSTATin 40 MG Tab PO SCH (20:08)
[2020-04-22] MEDS: Sodium Chloride 0.9% 1,000 ML IV SCH (07:20)
[2020-04-22] MEDS: Albuterol/Ipratropium 3.0-0.5 MG/3 ML Neb Soln NEB SCH ×5 (07:25→20:19)
[2020-04-22] MEDS: glipiZIDE 5 MG Tab PO SCH ×2 (07:26→17:03)
[2020-04-22] MEDS: MEXILETINE 150 MG PO SCH ×3 (07:26→20:20)
[2020-04-22 07:28] LABS: ANION GAP 6.4 mmol/L (10-20); CHLORIDE,CL 102 mmol/L (98-107); SODIUM,NA 137 mmol/L (136-145)
[2020-04-22] MEDS: Magnesium Oxide 400 MG Tab PO SCH (08:11)
[2020-04-22] MEDS: Tiotropium BR/Olodaterol HCL 4 GM Inhalation Spray 2.5mcg/1 dose; 10 doses INH SCH (08:11)
[2020-04-22] MEDS: Pantoprazole 40 MG Tab.CR PO SCH (08:12)
[2020-04-22] MEDS: Sotalol 80 MG Tab PO SCH ×2 (08:13→20:19)
[2020-04-22] MEDS: Metoprolol Succinate 50 MG Tab.ER PO SCH (08:13)
[2020-04-22] MEDS: Tamsulosin 0.4 MG Cap.ER PO SCH (08:14)
[2020-04-22] MEDS: Aspirin 81 MG Tab.Chew PO SCH (08:14)
[2020-04-22] MEDS: Cholecalciferol (Vitamin D3) 25 MCG Tab PO SCH (08:14)
[2020-04-22] MEDS: Lisinopril 10 MG Tab PO SCH (08:14)
[2020-04-22] MEDS: Chlorthalidone 25 MG Tab PO SCH (08:15)
[2020-04-22] MEDS: predniSONE 10 MG Tab PO SCH (08:15)
[2020-04-22] MEDS: Clopidogrel 75 MG Tab PO SCH (08:15)
[2020-04-22] MEDS: Azithromycin 500 MG in Sodium Chloride 0.9% 250 ML IV SCH (12:14)
[2020-04-22] MEDS: cefTRIAXone 1 GM Vial IVPUSH SCH (12:14)
--- NOTE | 2020-04-22 12:40 | PN ---
Progress Note for THALIA CROWLEY Date: 04/22/2020 Room #: VM.217 SUBJECTIVE: Hospital day #3 for a 70-year-old male patient who was admitted to the acute care floor at [facility] for atypical pneumonia, acute on chronic COPD exacerbation, bandemia, and hyperglycemia. The patient is resting comfortably this morning. The patient states that his dizziness is better today. He was seen by Physical Therapy yesterday for vestibular rehab. The patient states he continues to have a productive cough. He states his shortness of breath has gotten much better. The patient states he feels somewhat weak which he relates to not getting out of bed and walking. The patient denies any headaches or lightheadedness. The patient denies any chest pain or palpitations. The patient denies any abdominal pain. No nausea, vomiting, or diarrhea. No focal neurological deficits. The patient continues to have some elevated blood sugars, in which he received 15 units of subcu insulin. We will restart the patient's metformin today. OBJECTIVE: Vital Signs: Temperature 99.3, pulse 53, blood pressure 144/64, respiratory rate 17, oxygen saturation 96% on 3 L. General: The patient is alert. Patient is cooperative. Patient does not appear to be in any acute distress. Skin: Intact, warm, and dry. Respiratory: Scant bibasilar crackles. Scattered rhonchi throughout, which clears with cough. No wheezing. Cardiovascular: Regular rate and rhythm, no murmur. Abdomen: Soft, nontender. Bowel sounds are normoactive x4. Neurological: The patient is alert. Patient is oriented to person, place, and time. No focal neurological deficits. LABORATORY STUDIES: CBC: White blood cell count is 17.6, hemoglobin 13.3, hematocrit 41.2, and platelets 262,000. BMP: Sodium 137, potassium 4.4, chloride 102, CO2 is 33, anion gap is 6.4, BUN 23, creatinine 1.2, GFR greater than 60. Glucose 132, calcium 9.5. ASSESSMENT: 1. Atypical pneumonia, sputum culture shows gram-negative rods. 2. Acute chronic obstructive pulmonary disease exacerbation. 3. Bandemia. 4. Hyperglycemia. 5. Diabetes mellitus type 2, uncontrolled, not on long-term insulin. 6. Hypertension associated with diabetes type 2. 7. Hyperlipidemia associated with type 2 diabetes. 8. Congestive heart failure, chronic. 9. Rheumatoid arthritis. PLAN: A 70-year-old male patient, hospital day #3, admitted to the acute care floor at [facility] for the above diagnoses. Continue the patient on Rocephin and Zithromax for atypical pneumonia. Awaiting laboratory results for atypical pneumonia. We will await the culture and sensitivity on the sputum which is growing out gram-negative rods. We will restart the patient on his metformin. Continue p.r.n. sliding scale insulin. Continue with physical therapy for vestibular rehab. We will continue with IV fluids as patient does not have any signs or symptoms of congestive heart failure. The plan is to discharge home tomorrow as long as patient remains stable. The patient is a full code. Continue acute cares for now. This patient was seen and examined by me as an [facility] provider. TB: 04/22/2020 10:58:45 MODL: 04/22/2020 12:31:19 /[id number]
[2020-04-22] MEDS: metFORMIN 500 MG Tab PO SCH (17:06)
[2020-04-22] MEDS: atorvaSTATin 40 MG Tab PO SCH (20:19)
[2020-04-23] MEDS: Albuterol/Ipratropium 3.0-0.5 MG/3 ML Neb Soln NEB SCH ×3 (01:08→07:14)
[2020-04-23] MEDS: Sodium Chloride 0.9% 1,000 ML IV SCH (04:19)
[2020-04-23] MEDS: MEXILETINE 150 MG PO SCH (04:19)
[2020-04-23 06:16] VITALS: BP 123/64; PULSE 65
[2020-04-23] MEDS: glipiZIDE 5 MG Tab PO SCH (06:24)
[2020-04-23 07:24] LABS: CHLORIDE,CL 100 mmol/L (98-107); SODIUM,NA 137 mmol/L (136-145)
[2020-04-23 07:30] LABS: ANION GAP 10.2 mmol/L (10-20)
[2020-04-23] MEDS: Tiotropium BR/Olodaterol HCL 4 GM Inhalation Spray 2.5mcg/1 dose; 10 doses INH SCH (07:43)
[2020-04-23] MEDS: Metoprolol Succinate 50 MG Tab.ER PO SCH (07:43)
[2020-04-23] MEDS: metFORMIN 500 MG Tab PO SCH (07:44)
[2020-04-23] MEDS: Lisinopril 10 MG Tab PO SCH (07:44)
[2020-04-23] MEDS: Pantoprazole 40 MG Tab.CR PO SCH (07:44)
[2020-04-23] MEDS: Tamsulosin 0.4 MG Cap.ER PO SCH (07:44)
[2020-04-23] MEDS: Sotalol 80 MG Tab PO SCH (07:44)
[2020-04-23] MEDS: Magnesium Oxide 400 MG Tab PO SCH (07:45)
[2020-04-23] MEDS: Clopidogrel 75 MG Tab PO SCH (07:45)
[2020-04-23] MEDS: Cholecalciferol (Vitamin D3) 25 MCG Tab PO SCH (07:46)
[2020-04-23] MEDS: Aspirin 81 MG Tab.Chew PO SCH (07:46)
[2020-04-23] MEDS: Chlorthalidone 25 MG Tab PO SCH (07:46)
[2020-04-23] MEDS: predniSONE 10 MG Tab PO SCH (07:48)
--- NOTE | 2020-04-23 12:27 | DISCH ---
HISTORY OF PRESENT ILLNESS: A 70-year-old male patient was admitted to the acute care floor at [facility] on 04/20/2020 for atypical pneumonia. The patient was seen in the emergency room and started on azithromycin and Rocephin. The patient had a productive cough producing a green/yellow appearing purulent sputum. The patient states the symptoms had started that day upon admission. The patient has had 3 admissions over the past 3 months for pneumonia. The patient was experiencing increasing shortness of breath along with a productive cough. He had on and off chills. He did not have a fever. BRIEF HOSPITAL COURSE: The patient remained hemodynamically stable while admitted. The patient did have issues with hyperglycemia, therefore he was started on a sliding scale. The patient's metformin was held due to receiving IV contrast, however, the metformin was restarted yesterday. The patient did not have any problems with urination or bowel movements. The patient's productive cough improved. The patient continued to have dizziness, therefore he was seen by PT for vestibular rehab. The patient tolerated IV antibiotics without any problems. His appetite remained good. The patient did not have any fevers or chills. His initial white cell count was high around 18, and only decreased to 16 upon discharge. The patient appears to chronically have an elevated white cell count. All other labs remained within normal limits. CONSULTATIONS: Physical Therapy for vestibular rehab, Case Management. ACTIVITY: As tolerated. DIET: Diabetic. REVIEW OF SYSTEMS: Constitutional: Negative. Skin: Negative. Respiratory: Productive cough. No shortness of breath. Cardiovascular: Denies any chest pain or palpitations. Abdominal: Negative. Neurological: Negative. DISCHARGE PHYSICAL EXAMINATION: Vital Signs: Temperature 97.6, pulse 65, blood pressure 123/64, respiratory rate 18, oxygen saturation 94% on 3 L. Skin: Intact, warm, and dry. Neurological: The patient is alert. The patient is not in any acute distress. No focal neurological deficits. Cardiovascular: Regular rate and rhythm. No murmur. Respiratory: Scant bibasilar crackles. No rhonchi, no wheezing. Abdomen: Soft, nontender. Bowel sounds are normoactive x4. DISCHARGE LABORATORY WORK: 1. CBC: White blood cell count 16.8, hemoglobin 13.8, hematocrit 42.6, platelets 263,000. 2. BMP: Sodium 137, potassium 4.2, chloride 100, CO2 of 31, anion gap 10.2, BUN 21, creatinine 1.1, GFR greater than 60, glucose 107, calcium 9.5. DISCHARGE MEDICATIONS: 1. DuoNebs every 4 hours as needed. 2. Aspirin 81 mg 1 tablet p.o. daily. 3. Atorvastatin 80 mg 1 tablet p.o. daily at bedtime. 4. Z-Young to take as directed. 5. Chlorthalidone 12.5 mg 1 tablet p.o. daily. 6. Vitamin D 25 mcg 1 tablet p.o. daily. 7. Plavix 75 mg 1 tablet p.o. daily. 8. Glucotrol 5 mg 1 tablet p.o. twice daily. 9. Lisinopril 10 mg 1 tablet p.o. daily. 10.Magnesium oxide 420 mg 1 tablet p.o. daily. 11.Metformin 1000 mg 1 tablet p.o. twice daily. 12.Toprol-XL 200 mg 1 tablet p.o. daily. 13.Mexitil 1 tablet p.o. daily. 14.Protonix 40 mg 1 tablet p.o. daily. 15.Prednisone 5 mg 1 tablet p.o. daily. 16.Sotalol 120 mg 1 tablet p.o. twice daily. 17.Tamsulosin 0.4 mg 1 tablet p.o. daily. 18.Stiolto Respimat 2.5 mcg via inhalation daily. ASSESSMENT: 1. Atypical pneumonia. 2. Acute on chronic obstructive pulmonary disease exacerbation. 3. Bandemia, resolved. 4. Hyperglycemia. 5. Diabetes mellitus type 2, uncontrolled, not on long-term insulin. 6. Hypertension associated with diabetes type 2. 7. Hyperlipidemia associated with type 2 diabetes. 8. Congestive heart failure, chronic. 9. Rheumatoid arthritis. PLAN: A 70-year-old male patient was admitted with the above diagnoses to the acute care floor at [facility]. The patient will be discharged home today. No changes with any medications. We will continue the patient on a Z-Young for the full course. We discussed cough and deep breathing exercises at home. Strongly encouraged the ADA diet. We also discussed incentive spirometry. Continue nebulizers the same. We will discontinue ibuprofen and recommend Tylenol only. The patient needs to stay very well hydrated. The patient was discharged in hemodynamic stable condition. The patient will follow up with me in the clinic in 1 week. Sooner if any problems. This patient was seen and examined by me as an [facility] provider. TB: 04/23/2020 08:03:59 MODL: 04/23/2020 09:03:59 /[id number]
== END 2020-04-23 10:20 | disposition home or self-care (01) | DRG 194 ==
LOC: VM.ED 10:59 → VM.MS 14:50
PROVIDERS: ADMIT Nurse Practitioner Family; ATTEND Nurse Practitioner Family
DX: J18.9 Pneumonia, unspecified organism (principal); J44.0 Chronic obstructive pulmonary disease with (acute) lower respiratory infection; E11.65 Type 2 diabetes mellitus with hyperglycemia; I25.2 Old myocardial infarction; J44.1 Chronic obstructive pulmonary disease with (acute) exacerbation; E78.5 Hyperlipidemia, unspecified; K44.9 Diaphragmatic hernia without obstruction or gangrene; I11.0 Hypertensive heart disease with heart failure; E11.9 Type 2 diabetes mellitus without complications; E78.2 Mixed hyperlipidemia; Z88.8 Allergy status to other drugs, medicaments and biological substances; Z20.828 Contact with and (suspected) exposure to other viral communicable diseases; Z79.02 Long term (current) use of antithrombotics/antiplatelets; M06.9 Rheumatoid arthritis, unspecified; Z79.52 Long term (current) use of systemic steroids; I25.10 Atherosclerotic heart disease of native coronary artery without angina pectoris; I50.9 Heart failure, unspecified; Z87.442 Personal history of urinary calculi; Z95.810 Presence of automatic (implantable) cardiac defibrillator; Z98.49 Cataract extraction status, unspecified eye; Z90.49 Acquired absence of other specified parts of digestive tract; Z88.1 Allergy status to other antibiotic agents; Z79.82 Long term (current) use of aspirin; Z75.2 Other waiting period for investigation and treatment; Z79.899 Other long term (current) drug therapy; Z79.84 Long term (current) use of oral hypoglycemic drugs; Z79.01 Long term (current) use of anticoagulants
CPT/HCPCS: 36415; 71275; 74178; 80048; 80053; 81001; 82103; 82962; 83605; 83735; 83880; 84100; 84145; 84484; 85025; 85610; 85730; 86140; 86612; 86631; 86632; 86635; 86698; 86738; 87040; 87070; 87077; 87186; 87205; 87385; 87449; 87804; 87804-59; 87899; 93005; 94640; 94760; 97110-GP; 97161-GP; 99284; 99285-25; A9270-GY; J0456; J0696; J1815-GY; J2930; J7030; J7050; J7512; J7620-GY; Q9967; U0002

== ENCOUNTER 2020-05-22 14:03 | Emergency (ER) | payer MEDICARE, OTHER ==
[2020-05-22] MEDS ORDERED: methylPREDNISolone Sodium Succinate 125 MG/2 ML SDV IV ONE (14:43)
[2020-05-22] MEDS ORDERED: cefTRIAXone 2 GM Vial IVPUSH ONE (14:43)
--- NOTE | 2020-05-22 14:45 | EDM.PDOC ---
ED HPI GENERAL MEDICAL PROBLEM - General Chief Complaint: Chest Pain Time Seen by Provider: 05/22/20 14:03 Source of Information: Reports: Patient History Limitations: Reports: No Limitations - History of Present Illness INITIAL COMMENTS - FREE TEXT/NARRATIVE: Pt. presents to ER with complaints of productive cough, epigastric pain, and increased shortness of breath over the past several days. Pt. states that the cough is productive of greenish sputum. Pt. states that he did take some nitroglycerin for the chest discomfort. He states that the chest discomfort is worse when he coughs, and is similar to what he has experienced in the past. Pt. was admitted to this facility from April 20 through the for pneumonia. He was on rocephin and azithromycin at that time, and was given a full course of azithromycin. Sputum cultures + for pseudomonas which is resistant to both rocephin and azithromycin. Susceptibility showed no resistance to Zosyn. Strep pneumo and legionella antigen were both negative. Pt. states that he doesn't feel he fully recovered after his admission in April. He does have an underlying history of COPD, and is on oxygen at home. He states that he is still weak and has KHAN since his last admission. Pt. was also admitted to the [facility] in March and treated for pneumonia. His sputum cultures grew pseudomonas at that time. He was finished a course of ceftazidine at that time. Pt. also had an episode of V tach and very brief cardiac arrest (AICD discharged several times) in Jan. He was transferred to [facility] at that time. It appears he received a drug eluting stent in his L main. He has a history of ventricular arrhythmia in the past. Currently on Sotalol. Onset Date: 05/20/20 Location: Reports: Chest, Generalized Quality: Reports: Sharp Associated Symptoms: Reports: Cough, cough w sputum, Malaise, Shortness of Breath. Denies: Confusion, Rash, Seizure, Syncope Epigastric Pain Score (Numeric/FACES): 4 - Related Data Allergies Allergy/AdvReac Type Severity Reaction Status Date / Time nitrofurantoin Allergy Other Verified 05/22/20 14:50 tetracycline Allergy Hives Verified 05/22/20 14:50 Home Meds: Home Meds Albuterol/Ipratropium [DuoNeb 3.0-0.5 MG/3 ML] 3 ml NEB Q6H 10/28/17 [History] lisinopriL [Zestril] 10 mg PO DAILY 10/28/17 [History] Aspirin 81 mg PO DAILY 09/04/19 [History] Chlorthalidone 12.5 mg PO DAILY 09/04/19 [History] Cholecalciferol (Vitamin D3) [Vitamin D3] 1,000 mg PO DAILY 09/04/19 [History] Clopidogrel Bisulfate [Plavix] 75 mg PO DAILY 09/04/19 [History] Tiotropium Br/Olodaterol HCl [Stiolto Respimat Inhal Germfask] 2 puff INH DAILY 09/04/19 [History] Tamsulosin [Flomax] 0.4 mg PO DAILY 10/03/19 [History] Magnesium Oxide 420 mg PO DAILY 04/20/20 [History] Mexiletine [Mexitil] 150 mg PO Q8H 04/20/20 [History] Nitroglycerin [Nitrostat] 0.4 mg SL Q5M PRN 04/20/20 [History] Pantoprazole Sodium [Protonix] 40 mg PO DAILY 04/20/20 [History] Rosuvastatin Calcium [Crestor] 40 mg PO BEDTIME 04/20/20 [History] Sotalol HCl [Sotalol] 120 mg PO BID 04/20/20 [History] metFORMIN [Glucophage] 1,000 mg PO BIDMEALS 04/20/20 [History] predniSONE [Prednisone] 5 mg PO DAILY 04/20/20 [History] Magnesium Oxide/Magnesium [hv-Hxre-Muisevl Tablet] 133 mg PO DAILY 04/21/20 [History] Metoprolol Succinate [Toprol XL] 200 mg PO DAILY 04/21/20 [History] glipiZIDE [Glucotrol] 5 mg PO BIDAC 04/21/20 [History] Past Medical History HEENT History: Reports: Cataract, Sinusitis, Other (See Below) Other HEENT History: left eye problems, photo sensitive Cardiovascular History: Reports: Automatic Implantable Cardioverter Defibrillators, CAD, Heart Failure, RI, Pacemaker Respiratory History: Reports: COPD Gastrointestinal History: Reports: Hiatal Hernia, Other (See Below) Other Gastrointestinal History: diverticulitis Genitourinary History: Reports: Renal Calculus, Other (See Below) Other Genitourinary History: renal failure s/p pacer/aicd placement Musculoskeletal History: Reports: RA Neurological History: Reports: Migraines Psychiatric History: Reports: Addiction Endocrine/Metabolic History: Reports: Diabetes, Type II - Infectious Disease History Infectious Disease History: Reports: Chicken Pox, Measles - Past Surgical History HEENT Surgical History: Reports: Cataract Surgery Cardiovascular Surgical History: Reports: AICD, Carotid Stents, Pacer GI Surgical History: Reports: Appendectomy Male Surgical History: Reports: Kidney Stone Extraction Neurological Surgical History: Reports: Other (See Below) Other Neurological Surgeries/Procedures: back surgery x 2 Social & Family History - Family History Cardiac: Reports: Heart Failure Neurological: Reports: Alzheimers Disease Oncologic: Reports: Bone - Caffeine Use Caffeine Use: Reports: Coffee Caffeine Use Comment: 1 pot coffee/day ED ROS GENERAL - Review of Systems Review Of Systems: See Below Constitutional: Reports: Malaise, Weakness, Fatigue HEENT: Reports: No Symptoms Respiratory: Reports: Shortness of Breath, Pleuritic Chest Pain, Cough, Sputum Cardiovascular: Reports: No Symptoms Endocrine: Reports: No Symptoms GI/Abdominal: Reports: Abdominal Pain (epigastric pain) : Reports: No Symptoms Musculoskeletal: Reports: No Symptoms Skin: Reports: No Symptoms Neurological: Reports: No Symptoms Psychiatric: Reports: No Symptoms Hematologic/Lymphatic: Reports: No Symptoms Immunologic: Reports: No Symptoms ED EXAM, GENERAL - Physical Exam Exam: See Below Exam Limited By: No Limitations General Appearance: Alert, WD/WN, No Apparent Distress Nose: Normal Inspection, Normal Mucosa Throat/Mouth: Normal Inspection Head: Atraumatic, Normocephalic Neck: Normal Inspection, Supple, Non-Tender Respiratory/Chest: Decreased Breath Sounds, Pleural Rub (R lower posterior chest) Cardiovascular: Regular Rate, Rhythm, No Edema, No JVD Peripheral Pulses: 4+: Radial (L) GI/Abdominal: Soft, Non-Tender, No Distention, No Mass (Male) Exam: Deferred Rectal (Males) Exam: Deferred Back Exam: Normal Inspection Extremities: Normal Inspection, Normal Range of Motion, Non-Tender, Normal Capillary Refill Neurological: Alert, Oriented, CN II-XII Intact, Normal Cognition, Normal Gait Psychiatric: Normal Affect, Normal Mood Skin Exam: Warm, Dry, Intact, Normal Color, No Rash Lymphatic: No Adenopathy Course - Vital Signs Last Recorded V/S: Last Vital Signs Temp 36.9 C 05/22/20 17:21 Pulse 60 05/22/20 17:21 Resp 22 H 05/22/20 17:21 BP 110/48 L 05/22/20 17:21 Pulse Ox 95 05/22/20 17:21 - Orders/Labs/Meds Orders: Active Orders 24 hr Category Date Time Status Blood Glucose Check, Bedside [RC] ONETIME Care 05/22/20 16:03 Active CULTURE BLOOD [BC] Stat Lab 05/22/20 14:57 Received CULTURE BLOOD [BC] Stat Lab 05/22/20 15:03 Received Sodium Chloride 0.9% [Normal Saline] 1,000 ml Med 05/22/20 18:15 Active IV ASDIRECTED Blood Culture x2 Reflex Set [OM.PC] Stat Oth 05/22/20 14:14 Ordered Medication Orders Sodium Chloride (Normal Saline) 1,000 mls @ 150 mls/hr IV ASDIRECTED JAVAD Last Admin: 05/22/20 18:14 Dose: 150 mls/hr Documented by: SHAINA Labs: Laboratory Tests 05/22/20 05/22/20 05/22/20 Range/Units 14:24 14:57 14:57 WBC 7.8 (4.0-10.0) x10^3/uL RBC 5.39 (4.5-6.0) x10^6/uL Hgb 14.2 (14.0-18.0) g/dL Hct 43.8 (40.0-52.0) % MCV 81.3 (78.0-93.0) fL MCH 26.3 (26.0-32.0) pg MCHC 32.4 (32.0-36.0) g/dL RDW Coeff of Maximino 16.6 H (10.0-15.0) % Plt Count 194 (130-400) x10^3/uL Neut % (Auto) 85.7 H (50.0-80.0) % Lymph % (Auto) 8.0 L (25.0-50.0) % [place] % (Auto) 5.0 (2.0-11.0) % Eos % (Auto) 0.9 (0.0-4.0) % Baso % (Auto) 0.4 (0.2-1.2) % PT 11.2 (9.5-12.3) SEC INR 1.0 L (2.0-3.5) APTT (25.6-32.8) SEC D-Dimer, Quantitative 0.67 H (<=0.58) mg/LFEU Sodium (136-145) mmol/L Potassium (3.5-5.1) mmol/L Chloride (98-107) mmol/L Carbon Dioxide (21-32) mmol/L Anion Gap (10-20) mmol/L BUN (7-18) mg/dL Creatinine (0.70-1.30) mg/dL Est Cr Clr Drug Dosing Estimated GFR (MDRD) Glucose (74-106) mg/dL POC Glucose (74-106) mg/dL Lactic Acid (0.4-2.0) mmol/L Calcium (8.5-10.1) mg/dL Corrected Calcium (8.5-10.1) mg/dL Magnesium (1.8-2.4) mg/dL Total Bilirubin (0.2-1.0) mg/dL AST (15-37) U/L ALT (16-63) U/L Alkaline Phosphatase (46-116) U/L Troponin I (<=0.056) ng/mL C-Reactive Protein (<=0.9) mg/dL NT-Pro-B Natriuret Pep (<=125) pg/mL Total Protein (6.4-8.2) g/dL Albumin (3.4-5.0) g/dL Globulin Albumin/Globulin Ratio Urine Color (YELLOW) Urine Appearance (CLEAR) Urine pH (5.0-8.0) Ur Specific [place] Urine Protein (NEGATIVE) mg/dL Urine Glucose (UA) (NEGATIVE) mg/dL Urine Ketones (NEGATIVE) mg/dL Urine Occult Blood (NEGATIVE) Urine Nitrite (NEGATIVE) Urine Bilirubin (NEGATIVE) Urine Urobilinogen (0.2) EU/dL Ur Leukocyte Esterase (NEGATIVE) Urine RBC (NOT SEEN) /HPF Urine WBC (NOT SEEN) /HPF Ur Squamous Epith Cells (NEGATIVE) /HPF Urine Bacteria (NEGATIVE) /HPF Urine Mucus (NEGATIVE) /LPF SARS CoV-2 RNA Rapid SINA Negative (NEGATIVE) 05/22/20 05/22/20 05/22/20 Range/Units 14:57 14:57 14:57 WBC (4.0-10.0) x10^3/uL RBC (4.5-6.0) x10^6/uL Hgb (14.0-18.0) g/dL Hct (40.0-52.0) % MCV (78.0-93.0) fL MCH (26.0-32.0) pg MCHC (32.0-36.0) g/dL RDW Coeff of Maximino (10.0-15.0) % Plt Count (130-400) x10^3/uL Neut % (Auto) (50.0-80.0) % Lymph % (Auto) (25.0-50.0) % [place] % (Auto) (2.0-11.0) % Eos % (Auto) (0.0-4.0) % Baso % (Auto) (0.2-1.2) % PT (9.5-12.3) SEC INR (2.0-3.5) APTT 27.8 (25.6-32.8) SEC D-Dimer, Quantitative (<=0.58) mg/LFEU Sodium 137 (136-145) mmol/L Potassium 4.2 (3.5-5.1) mmol/L Chloride 99 (98-107) mmol/L Carbon Dioxide 29 (21-32) mmol/L Anion Gap 13.2 (10-20) mmol/L BUN 21 H (7-18) mg/dL Creatinine 0.8 (0.70-1.30) mg/dL Est Cr Clr Drug Dosing TNP Estimated GFR (MDRD) > 60 Glucose 183 H (74-106) mg/dL POC Glucose (74-106) mg/dL Lactic Acid 2.5 H* (0.4-2.0) mmol/L Calcium 9.5 (8.5-10.1) mg/dL Corrected Calcium 10.22 H (8.5-10.1) mg/dL Magnesium 1.9 (1.8-2.4) mg/dL Total Bilirubin 0.3 (0.2-1.0) mg/dL AST 19 (15-37) U/L ALT 19 (16-63) U/L Alkaline Phosphatase 106 (46-116) U/L Troponin I < 0.017 (<=0.056) ng/mL C-Reactive Protein 2.6 H (<=0.9) mg/dL NT-Pro-B Natriuret Pep 1882 H (<=125) pg/mL Total Protein 6.2 L (6.4-8.2) g/dL Albumin 3.1 L (3.4-5.0) g/dL Globulin 3.1 Albumin/Globulin Ratio 1.00 Urine Color (YELLOW) Urine Appearance (CLEAR) Urine pH (5.0-8.0) Ur Specific [place] Urine Protein (NEGATIVE) mg/dL Urine Glucose (UA) (NEGATIVE) mg/dL Urine Ketones (NEGATIVE) mg/dL Urine Occult Blood (NEGATIVE) Urine Nitrite (NEGATIVE) Urine Bilirubin (NEGATIVE) Urine Urobilinogen (0.2) EU/dL Ur Leukocyte Esterase (NEGATIVE) Urine RBC (NOT SEEN) /HPF Urine WBC (NOT SEEN) /HPF Ur Squamous Epith Cells (NEGATIVE) /HPF Urine Bacteria (NEGATIVE) /HPF Urine Mucus (NEGATIVE) /LPF SARS CoV-2 RNA Rapid SINA (NEGATIVE) 05/22/20 05/22/20 Range/Units 15:10 16:01 WBC (4.0-10.0) x10^3/uL RBC (4.5-6.0) x10^6/uL Hgb (14.0-18.0) g/dL Hct (40.0-52.0) % MCV (78.0-93.0) fL MCH (26.0-32.0) pg MCHC (32.0-36.0) g/dL RDW Coeff of Maximino (10.0-15.0) % Plt Count (130-400) x10^3/uL Neut % (Auto) (50.0-80.0) % Lymph % (Auto) (25.0-50.0) % [place] % (Auto) (2.0-11.0) % Eos % (Auto) (0.0-4.0) % Baso % (Auto) (0.2-1.2) % PT (9.5-12.3) SEC INR (2.0-3.5) APTT (25.6-32.8) SEC D-Dimer, Quantitative (<=0.58) mg/LFEU Sodium (136-145) mmol/L Potassium (3.5-5.1) mmol/L Chloride (98-107) mmol/L Carbon Dioxide (21-32) mmol/L Anion Gap (10-20) mmol/L BUN (7-18) mg/dL Creatinine (0.70-1.30) mg/dL Est Cr Clr Drug Dosing Estimated GFR (MDRD) Glucose (74-106) mg/dL POC Glucose 133 H (74-106) mg/dL Lactic Acid (0.4-2.0) mmol/L Calcium (8.5-10.1) mg/dL Corrected Calcium (8.5-10.1) mg/dL Magnesium (1.8-2.4) mg/dL Total Bilirubin (0.2-1.0) mg/dL AST (15-37) U/L ALT (16-63) U/L Alkaline Phosphatase (46-116) U/L Troponin I (<=0.056) ng/mL C-Reactive Protein (<=0.9) mg/dL NT-Pro-B Natriuret Pep (<=125) pg/mL Total Protein (6.4-8.2) g/dL Albumin (3.4-5.0) g/dL Globulin Albumin/Globulin Ratio Urine Color Light yellow (YELLOW) Urine Appearance Clear (CLEAR) Urine pH 7.5 (5.0-8.0) Ur Specific [place] 1.020 Urine Protein 30 H (NEGATIVE) mg/dL Urine Glucose (UA) Negative (NEGATIVE) mg/dL Urine Ketones Negative (NEGATIVE) mg/dL Urine Occult Blood Trace-intact H (NEGATIVE) Urine Nitrite Negative (NEGATIVE) Urine Bilirubin Negative (NEGATIVE) Urine Urobilinogen 1.0 (0.2) EU/dL Ur Leukocyte Esterase Negative (NEGATIVE) Urine RBC 0-5 (NOT SEEN) /HPF Urine WBC 0-5 (NOT SEEN) /HPF Ur Squamous Epith Cells Rare (NEGATIVE) /HPF Urine Bacteria Not seen (NEGATIVE) /HPF Urine Mucus Not seen (NEGATIVE) /LPF SARS CoV-2 RNA Rapid SINA (NEGATIVE) Meds: Medications Generic Name Dose Route Start Last Admin Trade Name Freq PRN Reason Stop Dose Admin Sodium Chloride 1,000 mls @ 150 mls/hr 05/22/20 18:15 05/22/20 18:14 Normal Saline IV 150 mls/hr ASDIRECTED JAVAD Administration Discontinued Medications Generic Name Dose Route Start Last Admin Trade Name Freq PRN Reason Stop Dose Admin Ceftriaxone Sodium 2 gm 05/22/20 14:43 05/22/20 15:02 Rocephin IVPUSH 05/22/20 14:44 Not Given STAT ONE Piperacillin Sod/Tazobactam 100 mls @ 200 mls/hr 05/22/20 14:58 05/22/20 15:05 Sod 4.5 gm/ Sodium Chloride IV 05/22/20 15:27 200 mls/hr STAT ONE Administration Methylprednisolone Sodium Succinate 125 mg 05/22/20 14:43 05/22/20 14:56 Solu-Medrol IV 05/22/20 14:44 125 mg ONETIME ONE Administration Departure - Departure Time of Disposition: 18:20 Disposition: DC/[facility] to [facility] Clinical Impression: Sepsis Pneumonia Qualifiers: Pneumonia type: due to unspecified organism Laterality: unspecified laterality Lung location: unspecified part of lung Qualified Code(s): J18.9 - Pneumonia, unspecified organism - Discharge Information Referrals: Jose Wesley NP [Primary Care Provider] - Forms: ED Department Discharge, Interfacility Transfer [facility] Sepsis Event Note (ED) - Evaluation Sepsis Screening Result: No Definite Risk - Focused Exam Vital Signs: Vital Signs Temp Pulse Resp BP Pulse Ox 05/22/20 17:21 36.9 C 60 22 H 110/48 L 95 05/22/20 16:09 37.0 C 65 23 H 136/64 95 05/22/20 15:16 37.1 C 61 18 136/64 96 05/22/20 14:03 36.9 C 67 23 H 175/69 H 95 - Problem List Review Problem List Initiated/Reviewed/Updated: Yes - My Orders Last 24 Hours: My Active Orders 05/22/20 14:14 Blood Culture x2 Reflex Set [OM.PC] Stat 05/22/20 14:57 CULTURE BLOOD [BC] Stat 05/22/20 15:03 CULTURE BLOOD [BC] Stat 05/22/20 16:03 Blood Glucose Check, Bedside [RC] ONETIME 05/22/20 18:15 Sodium Chloride 0.9% [Normal Saline] 1,000 ml IV ASDIRECTED - Assessment/Plan Last 24 Hours: My Active Orders 05/22/20 14:14 Blood Culture x2 Reflex Set [OM.PC] Stat 05/22/20 14:57 CULTURE BLOOD [BC] Stat 05/22/20 15:03 CULTURE BLOOD [BC] Stat 05/22/20 16:03 Blood Glucose Check, Bedside [RC] ONETIME 05/22/20 18:15 Sodium Chloride 0.9% [Normal Saline] 1,000 ml IV ASDIRECTED Plan: Pt. will be transferred to [facility]. Dr. Randle graciously accepts patient in transfer. Pt. was given 4.5gm zosyn IV in ER. He was started on normal saline at 150ml/hr. Pt. will be transported via [facility] ground ambulance. All questions were answered.
[2020-05-22] MEDS ORDERED: Piperacillin/Tazobactam 4.5 GM in Sodium Chloride 0.9% 100 ML IV ONE (14:58)
--- NOTE | 2020-05-22 15:00 | CR ---
[id number] RAD/RAD Chest PA or AP 1V EXAM: RAD Chest PA or AP 1V INDICATION: CHEST CONGESTION, COUGH COMPARISON: September 2019. DISCUSSION: Left chest wall cardiac conduction device in place, unchanged in appearance from the prior examination. Patchy areas of parenchymal opacification in the mid and lower lungs bilaterally. Appearance is somewhat nonspecific but can be seen with COVID pneumonia. No pneumothorax, effusion, or other abnormality. IMPRESSION: As above. Dustin Johnson MD 05/22/20 [id number] Thank you for allowing us to participate in the care of your patient.
[2020-05-22 15:36] LABS: CHLORIDE,CL 99 mmol/L (98-107); SODIUM,NA 137 mmol/L (136-145)
[2020-05-22 15:41] LABS: ANION GAP 13.2 mmol/L (10-20)
[2020-05-22 17:21] VITALS: BP 110/48; PULSE 60
--- NOTE | 2020-05-22 17:29 | CT ---
[id number] CT/CTA Chest EXAM: CTA Chest CLINICAL DATA: CHEST PAIN, SHORTNESS OF BREATH, POSITIVE D DIMER. COMPARISON STUDY: CT from April 20, 2020. FINDINGS: Lungs: Scattered areas of dense subpleural parenchymal opacification scattered throughout both lungs. Amount of parenchymal consolidation is increased compared the prior examination, most notable in the upper lobes. Additionally there are scattered patchy areas of tree-in-bud appearing centrilobular parenchymal nodularity. Those findings were seen previously and has slightly improved in some areas of the lungs, most notable in the lung bases. Bilateral central symmetric peribronchial thickening consistent with bronchitis/bronchiolitis. Findings are superimposed on changes of apical predominant parenchymal emphysema. Mediastinum: Multiple reactive appearing bilateral hilar lymph nodes. No enlargement by size criteria. Heart and great vessels: Coronary artery atherosclerosis. No pericardial effusion. Thoracic aorta atherosclerosis. No aneurysm. No dissection. Negative for pulmonary embolus. Bones: No acute fracture or compression deformity. Spondylosis. Upper abdomen: Unremarkable. IMPRESSION: Negative for pulmonary embolus. Abnormal parenchymal consolidation and nodularity throughout both lungs. Findings were seen on prior examination from April 2020, but have increased. Appearance is somewhat nonspecific but most consistent with pneumonia, including atypical etiologies such as viral and fungal etiologies including sequela of COVID 19. However appearance is not entirely typical of that entity. Multiple chronic findings are described above. Dustin Johnson MD 05/22/20 [id number] Thank you for allowing us to participate in the care of your patient.
[2020-05-22] MEDS ORDERED: Sodium Chloride 0.9% 1,000 ML IV SCH (18:15)
== END 2020-05-22 19:04 ==
LOC: VM.ED 14:03
DX: A41.9 Sepsis, unspecified organism (principal); J18.9 Pneumonia, unspecified organism; J44.9 Chronic obstructive pulmonary disease, unspecified; M06.9 Rheumatoid arthritis, unspecified; I50.9 Heart failure, unspecified; I25.2 Old myocardial infarction; E11.9 Type 2 diabetes mellitus without complications; I25.10 Atherosclerotic heart disease of native coronary artery without angina pectoris; Z20.822 Contact with and (suspected) exposure to COVID-19; Z88.1 Allergy status to other antibiotic agents; Z79.82 Long term (current) use of aspirin; Z79.02 Long term (current) use of antithrombotics/antiplatelets; Z79.899 Other long term (current) drug therapy; Z79.84 Long term (current) use of oral hypoglycemic drugs
CPT/HCPCS: 36415; 71045; 71275; 80053; 81001; 82962; 83605; 83735; 83880; 84484; 85025; 85379; 85610; 85730; 86140; 87040; 87635; 87804; 96365; 96375; 99285; J2543; J2930; J7030; J7050; 99284; U0002